=== PATIENT | female | born 1980 | race Two or more races ===

== ENCOUNTER 2022-07-12 16:12 | Emergency (ER) | payer MEDICAID, SELFPAY ==
--- NOTE | ~2022-07-12 | XR_ITS ---
EXAMINATION: XR CHEST CLINICAL INFORMATION: Cough, congestion and shortness of breath COMPARISON: None TECHNIQUE: Frontal view of the chest was obtained. FINDINGS: No significant abnormality is noted involving the heart, lungs, mediastinum, bony thorax or soft tissues. XR/XR chest 1V IMPRESSION: Unremarkable examination.
[2022-07-12 17:17] VITALS: BP 145/68; PULSE 72; RESP 18; TEMP 36.2; O2SAT 98; BMI 42.0
[2022-07-12 17:32] LABS: MANUAL DIFF FLAG NO
[2022-07-12 17:47] LABS: Basophils Absolute Auto 0.1 X10*3/uL (0.0-0.2); Basophils Percent Auto 0.8 % (0-2); Eosinophils Absolute Auto 0.1 X10*3/uL (0.0-0.4); Eosinophils Percent Auto 1.2 % (0-4); Hematocrit 40.8 % (37.0-47.0); Hemoglobin 13.5 g/dl (12.0-16.0); Imm Gran Abs Auto 0.03 X10*3/uL (0.00-0.03); Imm Gran Pct Auto 0.5 % (0.0-0.4); Lymphocytes Percent Auto 32.5 % (20-40); Mean Corpuscular HGB Conc 33.1 g/dl (31.0-35.0); Mean Corpuscular Hemoglobin 28.7 pg (27.0-33.0); Mean Corpuscular Volume 86.8 fL (80.0-98.0); Mean Platelet Volume 10.3 fL (9.4-12.3); Monocytes Absolute Auto 0.7 X10*3/uL (0.1-1.2); Neutrophils Absolute Auto 3.3 x10*3/uL (2.0-8.3); Platelet Count 237 X10*3/uL (160-400); White Blood Count 6.1 X10*3/uL (4.8-10.8)
[2022-07-12 17:52] LABS: Anion Gap 13 (12-20); Blood Urea Nitrogen 6 mg/dL (9-16); Calcium 8.8 mg/dL (8.4-10.2); Carbon Dioxide 27 mmol/L (22-29); Chloride 104 mmol/L (96-108); Estimated Glomerular Filt Rate > 60; Glucose Random 88 mg/dL (60-115); Potassium 4.2 mmol/L (3.3-5.1); Sodium 140 mmol/L (135-145)
--- NOTE | 2022-07-12 17:54 | ED.URI ---
HPI - URI/Sore Throat General Chief Complaint: Upper Respiratory Symptoms Stated Complaint: congested and asthma Time Seen by Provider: 07/12/22 17:54 Source: patient and sign language interpreter Mode of arrival: ambulatory Limitations: language barrier History of Present Illness HPI Narrative: Patient is a 42 year old female presenting to the emergency department today with an asthma exacerbation. Patient states that she has a history of asthma and over the last 2 days, she has felt like she is having a flare. Patient denies any dizziness, lightheadedness, abdominal pain, nausea, vomiting, fever, chills, blurry vision, double vision, loss of vision, chest pain, back pain, night sweats, pain with urination, increased urinary frequency, increased urinary urgency, blood in her urine or stool, syncope or a near syncopal episode, recent trauma or falls, bowel incontinence, bladder incontinence, bowel retention, bladder retention, or any other complaints at this time. Severity: mild Able to tolerate fluids by mouth: Yes Exacerbating factors: nothing Relieving factors: nothing Associated symptoms: denies other symptoms Treatments prior to arrival: none Related Data Previous Rx's Medication Instructions Recorded azithromycin 250 mg tablet See Rx Instructions PO .COMPLEX #6 07/12/22 tabs prednisone 20 mg tablet 20 mg PO DAILY 12 days #26 tabs 07/12/22 Allergies Allergy/AdvReac Type Severity Reaction Status Date / Time No Known Allergies Allergy Verified 07/12/22 17:14 Review of Systems Constitutional: Constitutional: Reports no additional constitutional complaints, Denies chills, Denies fever(s) and Denies night sweats Eyes: Eyes: Reports no additional eye complaints, Denies blurry vision, Denies change in vision, Denies diplopia, Denies eye discharge, Denies loss of vision and Denies eye pain ENT: Denies dizziness Cardiovascular: Cardiovascular: Reports no additional cardiovascular complaints, Denies chest pain, Denies lightheadedness, Denies Loss of Consciousness and Denies dyspnea Respiratory: Respiratory: Reports no additional respiratory complaints, Denies dyspnea and Reports wheezing Gastrointestinal: Gastrointestinal: Reports no additional gastrointestinal complaints, Denies abdominal pain, Denies melena, Denies hematochezia, Denies change in bowel habits and Denies change in stool character Genitourinary: Genitourinary: Denies hematuria, Denies urinary frequency, Denies dysuria, Denies urinary incontinence, Denies urinary hesitancy and Denies urinary urgency Musculoskeletal: Musculoskeletal: Reports no additional musculoskeletal complaints, Denies numbness and Denies tingling Neurologic: Denies dizziness, Denies loss of vision, Denies numbness and Denies tingling Psychiatric: Psychiatric: Reports no additional psychiatric complaints Endocrine: Endocrine: Reports no additional endocrine complaints Hematologic/Lymphatic: Hematologic/Lymphatic: Reports no additional hematologic/lymphatic complaints Allergic/Immunologic: Allergic/Immunologic: Reports no additional allergic/immunologic complaints and Reports wheezing PMFSH Past Medical History Attestation statement: The following information was validated with the patient. Source: old records reviewed Social History Social History Advance Directives: No Advance Directives Information Provided: No Physical Exam Vital Signs: Vital Signs: Last Vital Signs Temp 97.2 F 07/12/22 17:17 Pulse 72 07/12/22 17:17 Resp 18 07/12/22 17:17 BP 145/68 H 07/12/22 17:17 Pulse Ox 98 07/12/22 17:17 O2 Del Method 07/12/22 17:17 BMI result Body Mass Index 42.0 Const: General: cooperative, no acute distress, alert and awake Nutritional Appearance: well nourished Orientation/consciousness: patient oriented x3 Limitations: no limitations HEENT: Head: Yes normal to inspection and Yes atraumatic Ears: hearing grossly normal bilaterally and external ears normal General nose exam: Normal external nose present, no nasal discharge noted and no epistaxis Face and sinus: Yes normal facial exam, No abrasion and No laceration Mouth: Normal oral and palatal mucosa present, no drooling and no muffled voice Eyes: General: appearance normal, both eyes and all related structures Periorbital: periorbital findings normal Eyelids: Yes eyelids normal Conjunctivae: conjunctivae normal Pupils: Equal, round and reactive pupils present EOM: EOMs intact bilaterally Neck: Neck: Yes normal visual inspection, Yes full ROM and Yes no lymphadenopathy Chest: Chest palpation & inspection: normal inspection of the chest Resp: Effort & Inspection: normal respiratory effort and able to speak in complete sentences Auscultation: wheezes Cardio: Rate: regular rate Rhythm: regular rhythm GI: Inspection: Yes normal to inspection Neuro: General: patient oriented x3 and moves all extremities Cranial nerves: Yes Equal, round and reactive pupils present Cognition (Neuro): normal cognition Motor exam (neuro): 5/5 motor strength present throughout Sensory Exam: Normal double simultaneous stimulation for sensation Coordination: [id number] test normal Extrem: General: Yes normal to inspection, Yes full ROM and Yes capillary refill normal Psych: Appearance: grossly normal Mental Status: mental status grossly normal Affect: normal affect Attitude: cooperative Thought process: Normal thought process present Thought content: Normal thought content present Insight: Good insight present (Psych) MDM - URI/Sore Throat MDM Narrative Medical decision making narrative: Patient is a 42 year old female presenting to the emergency department today with a possible asthma exacerbation. Patient's physical exam showed bilateral wheezes but was otherwise unremarkable. Patient's blood work was unremarkable. Patient's chest x-ray showed no acute process. I explained my physical exam findings as well as all test results to the patient. I answered all questions asked by the patient. I stressed the importance of the patient taking her medication as prescribed. I stressed the importance of the patient following up with her primary care provider. I stressed the importance of the patient returning to the emergency department immediately if her symptoms were to worsen or if she were to develop any dizziness, shortness of breath, difficulty breathing, chest pain, blurry vision, loss of vision, nausea, vomiting, abdominal pain, fever, chills, back pain, or any other complaints. Patient verbalized agreement and understanding with this treatment plan and discharge. Medical Records Attestation: I reviewed the patient's medical records. Lab Data Attestation: I reviewed the patient's lab results. Result diagrams: 07/12/22 17:23 07/12/22 17:23 Labs: Lab Results 07/12/22 07/12/22 07/12/22 Range/Units 17:23 17:23 17:23 WBC 6.1 (4.8-10.8) X10*3/uL RBC 4.70 (4.20-5.50) X10*6/uL Hgb 13.5 (12.0-16.0) g/dl Hct 40.8 (37.0-47.0) % MCV 86.8 (80.0-98.0) fL MCH 28.7 (27.0-33.0) pg MCHC 33.1 (31.0-35.0) g/dl RDW 14.0 (11.0-16.0) % Plt Count 237 (160-400) X10*3/uL MPV 10.3 (9.4-12.3) fL Immature Gran % (Auto) 0.5 H (0.0-0.4) % Neut % (Auto) 54.0 (45-73) % Lymph % (Auto) 32.5 (20-40) % Pike % (Auto) 11.0 (2-11) % Eos % (Auto) 1.2 (0-4) % Baso % (Auto) 0.8 (0-2) % Lymph # (Auto) 2.0 (1.2-4.9) X10*3/uL Pike # (Auto) 0.7 (0.1-1.2) X10*3/uL Eos # (Auto) 0.1 (0.0-0.4) X10*3/uL Baso # (Auto) 0.1 (0.0-0.2) X10*3/uL Abs Immat Gran (auto) 0.03 (0.00-0.03) X10*3/uL Absolute Neuts (auto) 3.3 (2.0-8.3) x10*3/uL Absolute Nucleated RBC 0.000 (0.0-0.012) X10*3/uL Nucleated RBC % (auto) 0.0 (0.0-0.2) /100WBC Sodium 140 (135-145) mmol/L Potassium 4.2 (3.3-5.1) mmol/L Chloride 104 (96-108) mmol/L Carbon Dioxide 27 (22-29) mmol/L Anion Gap 13 (12-20) BUN 6 L (9-16) mg/dL Creatinine 0.76 (0.5-1.4) mg/dL Estim Creat Clear Calc 107.0 Estimated GFR > 60 Random Glucose 88 (60-115) mg/dL Calcium 8.8 (8.4-10.2) mg/dL COVID-19 ([facility]NA) Negative (Negative) COVID-19 Clin Com See Note Imaging Data Chest x-ray: Attestation: I personally reviewed and interpreted this imaging study as follows: My impression: No acute process. Radiologist's impression: EXAMINATION: XR CHEST CLINICAL INFORMATION: Cough, congestion and shortness of breath COMPARISON: None TECHNIQUE: Frontal view of the chest was obtained. FINDINGS: No significant abnormality is noted involving the heart, lungs, mediastinum, bony thorax or soft tissues. XR/XR chest 1V IMPRESSION: Unremarkable examination. ? Dictated By: Nic Yousif MD Signed By: Electronically signed by Nic Yousif MD 07/12/22 180 Discharge Plan Discharge Clinical Impression: Asthma exacerbation Patient Disposition: Home, Self-Care Instructions: Asthma (ED) Additional Instructions: Follow up with your primary care provider. Return to the emergency department immediately if your symptoms worsen or if you develop any dizziness, shortness of breath, difficulty breathing, chest pain, blurry vision, loss of vision, nausea, vomiting, abdominal pain, fever, chills, back pain, or any other complaints. Miguel Angel un seguimiento con valdez proveedor de atenci?n primaria. Regrese a la danie de emergencias de inmediato si jazmin s?ntomas empeoran o si presenta mareos, dificultad para respirar, dolor de pecho, visi?n borrosa, p?rdida de la visi?n, n?useas, v?mitos, dolor abdominal, fiebre, escalofr?os, dolor de espalda o cualquier otras quejas. Prescriptions: New prednisone 20 mg tablet 20 mg PO DAILY 12 Days Qty: 26 0RF Rx Instructions: Take 3 tablets for 5 days THEN; Take 2 tablets for 4 days THEN; Take 1 tablet for 3 days azithromycin 250 mg tablet See Rx Instructions .ROUTE .COMPLEX Qty: 6 0RF Rx Instructions: For 250 mg dose pack: take 500 mg today (day 1), then 250 mg for 4 days (days 2-5) Referrals: [facility] [place] Family Medicine [Provider Group] (Call to establish and follow up with a primary care provider. If you already have a primary care provider, please follow up with them. Llame para establecer y hacer un seguimiento con un proveedor de atenci?n primaria. Si ya tiene un proveedor de atenci?n primaria, miguel angel un seguimiento con ?l.) [facility] Primary Care, [place] [Provider Group] (Call to establish and follow up with a primary care provider. If you already have a primary care provider, please follow up with them. Llame para establecer y hacer un seguimiento con un proveedor de atenci?n primaria. Si ya tiene un proveedor de atenci?n primaria, miguel angel un seguimiento con ?l.) [facility] [Provider Group] (Call to establish and follow up with a primary care provider. If you already have a primary care provider, please follow up with them. Llame para establecer y hacer un seguimiento con un proveedor de atenci?n primaria. Si ya tiene un proveedor de atenci?n primaria, miguel angel un seguimiento con ?l.) [facility] [Physician] - (Call to establish and follow up with a primary care provider. If you already have a primary care provider, please follow up with them. Llame para establecer y hacer un seguimiento con un proveedor de atenci?n primaria. Si ya tiene un proveedor de atenci?n primaria, miguel angel un seguimiento con ?l.) Print Language: Puerto Rican
[2022-07-12 18:01] LABS: IDNOW Serial# 16C4AD1C
[2022-07-12 18:02] LABS: COVID-19 Test Negative (Negative)
--- NOTE | 2022-07-12 20:01 | PC.NURSE ---
1830- PT EVALUATED BY PROVIDER. AWARE AND AGREEABLE TO ED CARE PLAN. PT AWAKE, ALERT AND ORIENTED X 3. SKIN WARM AND DRY. RESP UNLABORED. DENIES N/V NO ACUTE DISTRES NOTED DENIES CP/SOB.
== END 2022-07-12 19:05 | disposition home or self-care (01) ==
PROVIDERS: Emergency Provider Emergency Medicine Emergency Medical Services
DX: J45.901 Unspecified asthma with (acute) exacerbation (principal); Z20.822 Contact with and (suspected) exposure to COVID-19
CPT/HCPCS: 71045; 80048; 85025; 87635; 99282; 99283

== ENCOUNTER 2022-08-22 10:49 | Emergency (ER) | payer MEDICAID, SELFPAY ==
[2022-08-22 11:04] VITALS: BP 155/75; PULSE 71; RESP 15; TEMP 36.6; O2SAT 98; BMI 42.0
--- NOTE | 2022-08-22 12:10 | ED_ITS ---
HPI - General Adult General Chief complaint: General Medical Stated complaint: med refill Time Seen by Provider: 08/22/22 11:42 Source: patient and parts interpreter Mode of arrival: ambulatory Limitations: language barrier History of Present Illness HPI narrative: 42-year-old female with history of asthma, hypertension, underlying mental health presents for medication refill. Patient tells me she moved here from [place]. She is working on establishing a primary care doctor but is having some difficulty. She does have all of her medications but is running out of her quetiapine 50 mg. She has 4 tablets left. No complaints Related Data Previous Rx's Medication Instructions Recorded azithromycin 250 mg tablet See Rx Instructions PO .COMPLEX #6 07/12/22 tabs prednisone 20 mg tablet 20 mg PO DAILY 12 days #26 tabs 07/12/22 ibuprofen 800 mg tablet 800 mg PO Q8H PRN pain #30 tabs 08/22/22 quetiapine 50 mg tablet 50 mg PO DAILY #30 tabs 08/22/22 Allergies Allergy/AdvReac Type Severity Reaction Status Date / Time No Known Allergies Allergy Verified 07/12/22 17:14 Review of Systems Review of Systems: Yes all other systems are reviewed and are negative Constitutional: Constitutional: Reports no additional constitutional complaints, Denies body ache(s), Denies chills, Denies fever(s), Denies headache(s) and Denies weakness Eyes: Eyes: Reports no additional eye complaints and Denies change in vision ENT: Reports system reviewed and no additional complaints, except as documented, Denies dizziness, Denies headache(s), Denies nasal congestion, Denies nasal discharge and Denies neck pain Cardiovascular: Cardiovascular: Reports no additional cardiovascular complaints, Denies chest pain, Denies leg edema and Denies dyspnea Respiratory: Respiratory: Reports no additional respiratory complaints, Denies cough and Denies dyspnea Gastrointestinal: Gastrointestinal: Reports no additional gastrointestinal complaints, Denies abdominal pain, Denies diarrhea, Denies nausea and Denies vomiting Genitourinary: Genitourinary: Reports no additional female genitourinary co mplaints and Denies urinary incontinence Musculoskeletal: Musculoskeletal: Reports no additional musculoskeletal complaints, Denies back pain, Denies arthralgias, Denies joint swelling, Denies neck pain, Denies numbness and Denies tingling Integumentary/Breasts: Skin/Breast: Reports system reviewed and no additional complaints, except as docu and Denies rash Neurologic: Reports system reviewed and no additional complaints, except as documented, Denies dizziness, Denies headache(s), Denies numbness, Denies tingling and Denies weakness PMF Past Medical History Attestation statement: The following information was validated with the patient. Source: old records reviewed and nursing notes reviewed Physical Exam ED Vital Signs: Vital Signs - 24 hr 08/22/22 11:04 Temperature 98 F Pulse Rate 71 Respiratory Rate 15 Blood Pressure 155/75 H Pulse Oximetry 98 Oxygen Delivery Method Room Air BMI result Body Mass Index 42.0 Const General: cooperative, healthy appearing, comfortable and no acute distress Orientation/consciousness: patient oriented x3 Limitations: language barrier HENMT Head: Yes normal to inspection Ears: hearing grossly normal bilaterally Eyes General: appearance normal, both eyes and all related structures Neck Neck: Yes normal visual inspection Chest Chest palpation & inspection: normal inspection of the chest Resp Effort & Inspection: normal respiratory effort Cardio Rate: regular rate Rhythm: regular rhythm Peripheral pulses: Peripheral pulses 2+ throughout GI Inspection: Yes normal to inspection Back/Spine/Pelvis Thoracic/Lumbar Spine: thoracic and lumbar spine normal to inspection Skin General skin exam: no rashes or lesions noted Neuro General: patient oriented x3 and moves all extremities Cognition (Neuro): normal cognition Gait exam (Neuro): Normal gait present Extrem General: Yes normal to inspection Medical Decision Making MDM Narrative Medical decision making narrative: 42-year-old female who recently moved here and is working establishing primary care doctor seeking medication refill for her quetiapine 50 mg. No physical complaints She has all of her other medication. Will have Case Management speak to the patient to assist her with subsequent primary care Will provide short supply of quetiapine until patient is able to establish this Medical Records Medical records reviewed: Yes I reviewed the patient's medical records. Discharge Plan Discharge Clinical Impression: Medication refill Patient Disposition: Home, Self-Care Instructions: Medicine Refill (ED) Prescriptions: New quetiapine 50 mg tablet 50 mg PO DAILY Qty: 30 0RF ibuprofen 800 mg tablet 800 mg PO Q8H PRN (Reason: pain) Qty: 30 0RF No Action prednisone 20 mg tablet 20 mg PO DAILY 12 Days Qty: 26 0RF Rx Instructions: Take 3 tablets for 5 days THEN; Take 2 tablets for 4 days THEN; Take 1 tablet for 3 days azithromycin 250 mg tablet See Rx Instructions .ROUTE .COMPLEX Qty: 6 0RF Rx Instructions: For 250 mg dose pack: take 500 mg today (day 1), then 250 mg for 4 days (days 2-5) Referrals: Marimar Figueroa FNP [Nurse Practitioner] - 09/01/22 11:00 am Interventions: ED Discharge Assessment Last Done: 08/22/22 13:40 Discharge Date/Time: 08/22/22 13:41 Print Language: Romanian
--- NOTE | 2022-08-22 13:30 | MHC.CM.ED ---
Received case management consult from Regina STOKES. Patient came to the ER to have her monthly Seroquel refilled. Patient relocated from [place] to [place] and from [place] to [place]. Patient has not been able to establish care with a PCP locally. Kendall tried to go to the [facility]. But they are not able to accept new patients at this time. They recommended patient contact their [place] office. Patient has transportation issues and will not be able to make appointments in [place]. T/W spoke with Amanda at [facility]. New patient appointment was made for 09/01 at 11am. Patient will need to arrive at 10:45am with her ID, ins card and a mask. Patient also requested t/w find a PCP for her son, Jan Suazo, : 05/03/2006. Per [facility], they don't accept patients under the age of 18. T/W attempted to reach the pediatric office at [facility]. They are currently at lunch. Will continue to try to contact their office. Continue to monitor for d/c needs.
--- NOTE | 2022-09-05 12:46 | MHC.CM.ED ---
Received telephone call from patient. Spoke with patient with help of telephone messenger. Patient had a PCP appointment arranged by T/W on 09/01. Patient went to appointment. Patient is requesting T/W find director of valuation for patient's 16 year old son. T/W explained patient will have to call pediatric offices in the area to arrange this appointment. Patient verbalized understanding.
== END 2022-08-22 13:41 | disposition home or self-care (01) ==
PROVIDERS: Emergency Provider Emergency Medicine
DX: Z76.0 Encounter for issue of repeat prescription (principal)
CPT/HCPCS: 99282; 99283

== ENCOUNTER 2022-09-11 08:54 | Outpatient (REF) | payer MEDICAID, SELFPAY ==
[2022-09-11 09:14] LABS: MANUAL DIFF FLAG NO
[2022-09-11 09:42] LABS: Basophils Absolute Auto 0.1 X10*3/uL (0.0-0.2); Basophils Percent Auto 0.6 % (0-2); Eosinophils Absolute Auto 0.1 X10*3/uL (0.0-0.4); Eosinophils Percent Auto 1.2 % (0-4); Hematocrit 41.7 % (37.0-47.0); Hemoglobin 13.9 g/dl (12.0-16.0); Imm Gran Abs Auto 0.02 X10*3/uL (0.00-0.03); Imm Gran Pct Auto 0.2 % (0.0-0.4); Lymphocytes Absolute Auto 2.3 X10*3/uL (1.2-4.9); Lymphocytes Percent Auto 27.4 % (20-40); Mean Corpuscular HGB Conc 33.3 g/dl (31.0-35.0); Mean Corpuscular Hemoglobin 29.4 pg (27.0-33.0); Mean Corpuscular Volume 88.3 fL (80.0-98.0); Mean Platelet Volume 10.5 fL (9.4-12.3); Monocytes Absolute Auto 0.7 X10*3/uL (0.1-1.2); Monocytes Percent Auto 8.2 % (2-11); Neutrophils Absolute Auto 5.3 x10*3/uL (2.0-8.3); Neutrophils Percent Auto 62.4 % (45-73); Platelet Count 307 X10*3/uL (160-400); Red Blood Count 4.72 X10*6/uL (4.20-5.50); Red Cell Distribution Width 13.9 % (11.0-16.0); White Blood Count 8.5 X10*3/uL (4.8-10.8)
[2022-09-11 09:54] LABS: Estimated Average Glucose 108 mg/dL; Hemoglobin A1c % 5.4 %
[2022-09-11 10:34] LABS: Alanine Aminotransferase 19 U/L (0-31); Albumin Level 4.1 g/dL (3.5-5.0); Alkaline Phosphatase 55 U/L (39-117); Anion Gap 11 (12-20); Aspartate Amino Transferase 22 U/L (5-31); Bilirubin Total 0.5 mg/dL (0.0-1.0); Blood Urea Nitrogen 9 mg/dL (9-16); Carbon Dioxide 27 mmol/L (22-29); Chloride 103 mmol/L (96-108); Cholesterol 165 mg/dL; Estimated Glomerular Filt Rate > 60; Glucose Random 86 mg/dL (60-115); HDL Cholesterol 38 mg/dL; LDL Cholesterol Calculated 105 mg/dl; Potassium 4.2 mmol/L (3.3-5.1); Sodium 137 mmol/L (135-145); TSH reflex Free T4 2.25 uIU/mL (0.32-4.0); Total Protein 7.4 g/dL (6.5-8.0); Triglycerides 112 mg/dL; Vitamin D 25-OH Total 26.5 ng/mL (>30)
[2022-09-11 10:39] LABS: Vitamin B12 448 pg/mL (200-900)
== END 2022-09-11 08:55 | disposition home or self-care (01) ==
LOC: HO.LAB 08:54
PROVIDERS: Visit Provider Nurse Practitioner Family
DX: Z13.0 Encounter for screening for diseases of the blood and blood-forming organs and certain disorders involving the immune mechanism (principal); Z13.29 Encounter for screening for other suspected endocrine disorder; Z13.21 Encounter for screening for nutritional disorder; Z13.220 Encounter for screening for lipoid disorders; I10 Essential (primary) hypertension
CPT/HCPCS: 36415; 80053; 80061; 82306; 82607; 83036; 84443; 85025

== ENCOUNTER 2022-09-27 08:57 | Outpatient (REF) | payer MEDICAID, SELFPAY ==
--- NOTE | ~2022-09-27 | MM_ITS ---
EXAMINATION: MM SCREENING DIGITAL BREAST TOMOSYNTHESIS, BILATERAL CLINICAL INFORMATION: Screening. Asymptomatic. Prior clg-ri-[id number] mammography currently unavailable. No known family history breast cancer. The lifetime risk of breast cancer based on the Tyrer-Cuzick Model is 5%. COMPARISON: None. TECHNIQUE: Digital breast tomosynthesis is performed in both the craniocaudal and mediolateral oblique views along with computer-aided detection (CAD). Synthesized 2D images are generated from the tomosynthesis. Additional left CC view is provided. FINDINGS: There are scattered areas of fibroglandular density (ACR BI-RADS breast composition Category b). There are no significant masses, abnormal calcifications, or other abnormalities. The axilla and skin contours are unremarkable. Radiology department staff will attempt to retrieve srh-iz-cdtbt mammography to allow for comparison in an addendum report. MM/MM tomosynthesis screening BI IMPRESSION: No mammographic evidence of malignancy. ASSESSMENT: BI-RADS 1: Negative RECOMMENDATION: Routine annual mammography screening. This patient's information was entered into a reminder system with a target due date for their next mammogram.
== END 2022-09-27 08:58 | disposition home or self-care (01) ==
LOC: HO.MAMMO 08:57
PROVIDERS: PCP Nurse Practitioner Family; Visit Provider Nurse Practitioner Family
DX: Z12.31 Encounter for screening mammogram for malignant neoplasm of breast (principal)
CPT/HCPCS: 77063; 77067

== ENCOUNTER 2022-09-27 15:02 | Emergency (ER) | payer MEDICAID, SELFPAY ==
[2022-09-27 16:43] VITALS: BP 171/96; PULSE 78; RESP 18; TEMP 36.6; O2SAT 99; BMI 40.2
--- NOTE | 2022-09-27 16:50 | ED_ITS ---
HPI - General Adult General Chief complaint: General Medical Stated complaint: Med Refill History of Present Illness HPI narrative: Patient is a 42-year-old female has a baseline bipolar history of hypertension patient presented today after running out of her medication. Patient is on S eroquel 50 mg 1 tablet per day. No fever no chills no chest pain or shortness of breath no systemic complaints Related Data Home Medications Medication Instructions Recorded Confirmed albuterol sulfate 90 mcg/actuation 2 puff inhalation Q4-6H PRN 09/01/22 09/01/22 aerosol inhaler (ProAir HFA) cetirizine 10 mg tablet 10 mg PO DAILY 09/01/22 09/01/22 ibuprofen 600 mg tablet 600 mg PO Q6H PRN 09/01/22 09/01/22 montelukast 10 mg tablet 10 mg PO DAILY 09/01/22 09/01/22 Previous Rx's Medication Instructions Recorded ibuprofen 800 mg tablet 800 mg PO Q8H PRN pain #30 tabs 08/22/22 quetiapine 50 mg tablet 50 mg PO DAILY #30 tabs 08/22/22 escitalopram oxalate 10 mg tablet 10 mg PO DAILY #30 tabs 09/01/22 lisinopril 10 mg tablet 10 mg PO DAILY #90 tabs 09/01/22 cholecalciferol (vitamin D3) 50 50 mcg PO DAILY #30 caps 09/12/22 mcg (2,000 unit) capsule quetiapine 25 mg tablet (Seroquel) 25 mg PO DAILY #14 tabs 09/27/22 quetiapine 50 mg tablet (Seroquel) 50 mg PO DAILY #14 tabs 09/27/22 quetiapine 50 mg tablet (Seroquel) 50 mg PO DAILY #14 tabs 09/27/22 Allergies Allergy/AdvReac Type Severity Reaction Status Date / Time Nuts Allergy Severe Anaphylaxis Uncoded 09/01/22 12:31 Review of Systems Review of Systems: No fever no chills no cough no congestion or upper respiratory symptoms Yes all other systems are reviewed and are negative [facility] Past Medical History Attestation statement: The following information was validated with the patient. Medical History Deafness in right ear Hearing difficulty of left ear Meningitis Obesity Surgical History H/O hysterectomy with unilateral oophorectomy Family History Family History Mother Cervical cancer, Onset Age: 40 Social History Social History Housing: Assisted Living Facility (custodial ) Patient Tobacco Use Status: Never used Tobacco e-Cigarette/Vaping Use: Never Used service: No Current occupational status: unemployed Cognitive needs: No Hearing needs: No Vision needs: No Physical Exam ED Vital Signs: Vital Signs - 24 hr 09/27/22 16:43 Temperature 97.9 F Pulse Rate 78 Respiratory Rate 18 Blood Pressure 171/96 H Pulse Oximetry 99 Oxygen Delivery Method Room Air BMI result Body Mass Index 40.2 Appearance: Alert. Oriented X3. No acute distress. Eyes: Pupils equal, round and reactive to light. ENT: Pharynx normal. Neck: Normal inspection. Neck supple. No lymph nodes noted. No crepitus CVS: Normal heart rate and rhythm. Pulses normal. Normal S1 and S2 Respiratory: No respiratory distress. Breath sounds normal. No Wheezing. No rales Abdomen: Soft and nontender. No rigidity. No distention. good BS x4 Skin: Skin warm and dry. Normal skin color. Normal skin turgor. Extremities: No lower extremity edema. Neurovascular intact to all extremities. No Lacerations. No Rash Neuro: Oriented X 3. No motor deficit. No sensory deficit. Moving all extermities. No slurred speech Medical Decision Making Medical Decision Making MDM Narrative: Patient out of medications. He was in the emergency department about a month ago for similar episode. The patient was given 1 month supply of Seroquel. This time patient is out of medications again. Informed patient that she needs to follow-up with her primary physician for Seroquel. Will give patient a 2 week supply of Seroquel. Have patient follow-up on an outpatient basis Discharge Plan Discharge Clinical Impression: Bipolar 1 disorder Patient Disposition: Home, Self-Care Instructions: Bipolar Disorder (ED) Prescriptions: New quetiapine [Seroquel] 25 mg tablet 25 mg PO DAILY Qty: 14 0RF quetiapine [Seroquel] 50 mg tablet 50 mg PO DAILY Qty: 14 0RF quetiapine [Seroquel] 50 mg tablet 50 mg PO DAILY Qty: 14 0RF No Action cholecalciferol (vitamin D3) 50 mcg (2,000 unit) capsule 50 mcg PO DAILY Qty: 30 3RF quetiapine 50 mg tablet 50 mg PO DAILY Qty: 30 0RF ibuprofen 800 mg tablet 800 mg PO Q8H PRN (Reason: pain) Qty: 30 0RF cetirizine 10 mg tablet 10 mg PO DAILY montelukast 10 mg tablet 10 mg PO DAILY ibuprofen 600 mg tablet 600 mg PO Q6H PRN albuterol sulfate [ProAir HFA] 90 mcg/actuation HFA aerosol inhaler 2 puff inhalation Q4-6H PRN escitalopram oxalate 10 mg tablet 10 mg PO DAILY Qty: 30 3RF lisinopril 10 mg tablet 10 mg PO DAILY Qty: 90 3RF
== END 2022-09-27 17:08 | disposition home or self-care (01) ==
LOC: HO.ED 17:08
PROVIDERS: Emergency Provider Emergency Medicine Emergency Medical Services; PCP Nurse Practitioner Family
DX: F31.9 Bipolar disorder, unspecified (principal); Z76.0 Encounter for issue of repeat prescription; Z79.899 Other long term (current) drug therapy
CPT/HCPCS: 99282; 99283

== ENCOUNTER 2022-12-29 14:32 | Outpatient (REF) | payer OTHER, SELFPAY ==
--- NOTE | ~2022-12-29 | MR_ITS ---
EXAMINATION: MR LUMBAR SPINE WITHOUT CONTRAST CLINICAL INFORMATION: Low back pain. COMPARISON: None available. TECHNIQUE: MRI of the lumbar spine was obtained using routine sequences without contrast. FINDINGS: Normal anatomic alignment. Moderate degenerative disc disease at T10-T11, T11-T12, and L1-L2. Mild degenerative disc disease at all additional lumbar levels. Associated mild mixed Modic type discogenic endplate changes including minimal Modic type I discogenic edema at T11-T12 and T12-L1. No additional suspicious marrow edema. The vertebral body heights are largely maintained. The conus medullaris terminates at the level of L1. The distal spinal cord is normal in appearance. Nonspecific moderate atrophy of the right iliopsoas musculature. No additional significant abnormalities of the paraspinal musculature. Limited evaluation of the intra-abdominal structures without significant abnormalities. The abdominal aorta is of normal contour and caliber. AXIAL SPINAL LEVELS: T12-L1: Normal annular contour. There is mild left and no right facet joint arthropathy. There is no neural foraminal stenosis. There is no spinal canal stenosis. L1-L2: Mild diffuse disc bulge with superimposed shallow central disc protrusion. There is mild bilateral facet joint arthropathy. There is no neural foraminal stenosis. There is no spinal canal stenosis. L2-L3: Normal annular contour. There is mild bilateral facet joint arthropathy. There is no neural foraminal stenosis. There is no spinal canal stenosis. L3-L4: Normal annular contour. There is mild bilateral facet joint arthropathy. There is no neural foraminal stenosis. There is no spinal canal stenosis. L4-L5: Shallow diffuse disc bulge with superimposed small left foraminal disc protrusion. There is mild bilateral facet joint arthropathy. There is mild left and no right neural foraminal stenosis. There is no spinal canal stenosis. L5-S1: Normal annular contour. There is mild bilateral facet joint arthropathy. There is no neural foraminal stenosis. There is no spinal canal stenosis. MR/MR lumbar spine wo con IMPRESSION: 1. Mild multilevel degenerative spondyloarthropathy of the lumbar spine as described in detail above. No overt spinal canal stenosis or nerve root compression. 2. Nonspecific moderate atrophy of the right iliopsoas musculature.
== END 2022-12-29 14:33 | disposition home or self-care (01) ==
LOC: HO.MRI 14:32
PROVIDERS: PCP Nurse Practitioner Family; Visit Provider Nurse Practitioner Family
DX: M54.50 Low back pain, unspecified (principal)
CPT/HCPCS: 72148

== ENCOUNTER → 2023-02-21 11:00 | Outpatient (BNVA) | payer OTHER, SELFPAY | PROVIDERS: PCP Nurse Practitioner Family; Visit Provider Anesthesiology | DX: M47.816 Spondylosis without myelopathy or radiculopathy, lumbar region (principal); M54.50 Low back pain, unspecified; M46.1 Sacroiliitis, not elsewhere classified; M53.3 Sacrococcygeal disorders, not elsewhere classified; G89.29 Other chronic pain | CPT/HCPCS: 99202 ==

== ENCOUNTER 2023-02-25 12:43 | Emergency (ER) | payer OTHER, SELFPAY ==
[2023-02-25 12:50] VITALS: BP 126/74; PULSE 80; RESP 19; TEMP 36.6; O2SAT 99; BMI 46.6
--- NOTE | 2023-02-25 12:54 | ED.SKABFB ---
HPI - Skin/Abscess/Foreign Bdy General Chief complaint: Wound/Laceration Stated complaint: cut L foot Time Seen by Provider: 02/25/23 13:04 Source: patient, RN notes reviewed and old records reviewed Mode of arrival: ambulatory History of Present Illness HPI narrative: 42-year-old female with a past medical history of asthma, hypertension, bipolar, vitamin-D deficiency, presenting to the ED complaining of persistent bleeding from varicose vein to left foot S/P knicking vein while shaving at 11:00AM. Admits tried direct pressure at home without resolution. Denies taking anticoagulation. Reports associated jittery/achiness. Denies lightheadedness/dizziness, CP/SOB, injury/fall MD complaint: lesion Onset (ago): hour(s) Related Data Home Medications Medication Instructions Recorded Confirmed albuterol sulfate 90 mcg/actuation 2 puff inhalation Q4-6H PRN 09/01/22 11/27/22 aerosol inhaler (ProAir HFA) cetirizine 10 mg tablet 10 mg PO DAILY 09/01/22 11/27/22 montelukast 10 mg tablet 10 mg PO DAILY 09/01/22 11/27/22 Previous Rx's Medication Instructions Recorded ibuprofen 800 mg tablet 800 mg PO Q8H PRN pain #30 tabs 08/22/22 lisinopril 10 mg tablet 10 mg PO DAILY #90 tabs 09/01/22 cholecalciferol (vitamin D3) 50 50 mcg PO DAILY #30 caps 09/12/22 mcg (2,000 unit) capsule escitalopram oxalate 10 mg tablet 10 mg PO DAILY #30 tabs 11/27/22 miconazole nitrate 4 % (200 mg)-2 See Rx Instructions vaginal 11/27/22 % (9 gram)vaginal,prefill .COMPLEX #24 grams appl,cream quetiapine 50 mg tablet 50 mg PO DAILY #30 tabs 11/27/22 Allergies Allergy/AdvReac Type Severity Reaction Status Date / Time Nuts Allergy Severe Anaphylaxis Uncoded 02/25/23 12:56 Review of Systems Review of Systems: Constitutional: No Fever, No Chills, +jittery ENT/Mouth: No Ear Pain, No Nasal Congestion, No Swallowing Difficulty Cardiovascular: No Chest Pain, No SOB Respiratory: No Cough, No Sputum, No Wheezing Gastrointestinal: No Nausea, No Vomiting, No Diarrhea, No Abdominal pain Musculoskeletal: No joint pain, No Myalgias, No Joint Swelling Skin: +Skin Lesions, No rash Neuro: No Weakness, No Numbness, No Paresthesias Yes all other systems are reviewed and are negative Constitutional: Constitutional: Reports as per [facility] Past Medical History Attestation statement: The following information was validated with the patient. Source: old records reviewed Medical History Deafness in right ear Hearing difficulty of left ear Lumbar back pain Meningitis Obesity Spondyloarthropathy of lumbar spine Surgical History H/O hysterectomy with unilateral oophorectomy Family History Family History Mother Cervical cancer, Onset Age: 40 Social History Social History Housing: Assisted Living Facility Patient Tobacco Use Status: Never used Tobacco e-Cigarette/Vaping Use: Never Used Advance Directives: No Advance Directives Information Provided: Yes service: No Current occupational status: unemployed Cognitive needs: No Hearing needs: No Vision needs: No Physical Exam Vital Signs: Vital Signs: Last Vital Signs Temp 98 F 02/25/23 12:50 Pulse 80 02/25/23 12:50 Resp 19 02/25/23 12:50 BP 126/74 02/25/23 12:50 Pulse Ox 99 02/25/23 12:50 O2 Del Method Room Air 02/25/23 12:50 BMI result Body Mass Index 46.6 Const: General: cooperative, healthy appearing and no acute distress Orientation/consciousness: patient oriented x3 Limitations: no limitations HEENT: Head: Yes normal to inspection and Yes atraumatic Ears: hearing grossly normal bilaterally General nose exam: Normal external nose present Face and sinus: Yes normal facial exam Eyes: General: appearance normal, both eyes and all related structures EOM: EOMs intact bilaterally Neck: Neck: Yes normal visual inspection and Yes no meningeal signs Resp: Effort & Inspection: normal respiratory effort and no respiratory distress Cardio: Rate: regular rate Heart sounds: S1 normal heart sound present and S2 normal heart sound present Peripheral pulses: Peripheral pulses 2+ throughout Skin: Other: + small actively bleeding lesion to left medial foot. NV intact. Nontender, no deformity/ecchymosis or cellulitis Rashes: no rashes Neuro: General: patient oriented x3, tone normal and no meningeal signs Gait exam (Neuro): Normal gait present Extrem: General: Yes normal to inspection Course Course Course Narrative: -1357--labs reassuring -1400--on re-evaluation initially bleeding controlled, however started to rebleed. Surgicel/compression dressing reapplied. Will reassess -1442--on re-evaluation bleeding has subsided. 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 They verbalized understanding and feel safe for discharge at this time. Medical Decision Making Medical Decision Making [facility] Narrative: 42-year-old female with a past medical history of asthma, hypertension, bipolar, vitamin-D deficiency, presenting to the ED complaining of persistent bleeding from varicose vein to left foot S/P knicking vein while shaving at 11:00AM. On exam vital signs stable, NAD, nontoxic appearing, ambulating with steady gait. Small bleeding lesion noted to left medial foot, active bleeding appreciated. Surgicel applied with compression Ricco wrap. Lower suspicion for anemia. No evidence of infection/cellulitis Plan: Basic labs, re-evaluation hemostasis Please refer to course for remaining clinical decision making, interpretation of labs/imaging results, and discussions with consultants and/or family members. Differential Diagnosis Differential Diagnoses: The differential diagnosis associated with the presentation includes As above Lab Data [facility] Lab Attestation statement: I reviewed the patient's lab results. 02/25/23 13:07 Labs: Lab Results 02/25/23 02/25/23 Range/Units 13:07 13:07 WBC 8.9 (4.8-10.8) X10*3/uL RBC 4.37 (4.20-5.50) X10*6/uL Hgb 12.8 (12.0-16.0) g/dl Hct 38.6 (37.0-47.0) % MCV 88.3 (80.0-98.0) fL MCH 29.3 (27.0-33.0) pg MCHC 33.2 (31.0-35.0) g/dl RDW 13.6 (11.0-16.0) % Plt Count 297 (160-400) X10*3/uL MPV 9.9 (9.4-12.3) fL Immature Gran % (Auto) 0.6 H (0.0-0.4) % Neut % (Auto) 63.3 (45-73) % Lymph % (Auto) 28.2 (20-40) % Hughes % (Auto) 6.6 (2-11) % Eos % (Auto) 0.9 (0-4) % Baso % (Auto) 0.4 (0-2) % Lymph # (Auto) 2.5 (1.2-4.9) X10*3/uL Hughes # (Auto) 0.6 (0.1-1.2) X10*3/uL Eos # (Auto) 0.1 (0.0-0.4) X10*3/uL Baso # (Auto) 0.0 (0.0-0.2) X10*3/uL Abs Immat Gran (auto) 0.05 H (0.00-0.03) X10*3/uL Absolute Neuts (auto) 5.6 (2.0-8.3) x10*3/uL Absolute Nucleated RBC 0.000 (0.0-0.012) X10*3/uL Nucleated RBC % (auto) 0.0 (0.0-0.2) /100WBC PT 11.8 (10.0-13.1) SEC INR 1.0 (0.9-1.1) Radiology Impression Discussion of test interpretation with radiology: I have reviewed the radiologist's reading. External Record Review External record reviewed: Inpatient record, Office record, Outpatient record, Prior outpatient labs, Prior outpatient radiology, Primary care record and Outside ED record Tests considered The following testing was considered but not selected: As above Discharge Plan Discharge Clinical Impression: Bleeding Patient Disposition: Home, Self-Care Instructions: Bleeding Disorders (ED) Additional Instructions: Keep dressing intact, recheck tomorrow morning. To remove underlying dressing please soak with water. If bleeding recurs apply direct pressure and then tight Ricco wrap for compression, elevate your leg If you cannot control bleeding please return to the ED Follow-up with her doctor Mantenga el vendaje intacto, vuelva a revisar ma?viry por la ma?viry. Para quitar el ap?sito subyacente, emp?pelo con agua. Si el sangrado reaparece, aplique presi?n directa y luego apriete la venda Ricco para comprimir, eleve la pierna. Si no puede controlar el sangrado, regrese al servicio de urgencias. Seguimiento con valdez m?dico Prescriptions: No Action cholecalciferol (vitamin D3) 50 mcg (2,000 unit) capsule 50 mcg PO DAILY Qty: 30 3RF ibuprofen 800 mg tablet 800 mg PO Q8H PRN (Reason: pain) Qty: 30 0RF cetirizine 10 mg tablet 10 mg PO DAILY montelukast 10 mg tablet 10 mg PO DAILY albuterol sulfate [ProAir HFA] 90 mcg/actuation HFA aerosol inhaler 2 puff inhalation Q4-6H PRN lisinopril 10 mg tablet 10 mg PO DAILY Qty: 90 3RF miconazole nitrate 4 % (200 mg)- 2 % (9 gram) comb pack,prefill appl, cream See Rx Instructions vaginal .COMPLEX Qty: 24 0RF Rx Instructions: put 1 supp in vagina at bedtime x 3nites;use cream on area outside vagina 2X/day for up to 7days vaginal escitalopram oxalate 10 mg tablet 10 mg PO DAILY Qty: 30 3RF quetiapine 50 mg tablet 50 mg PO DAILY Qty: 30 3RF Referrals: Daimon Randall MD [Primary Care Provider] - 3 days Interventions: ED Discharge Assessment Last Done: 02/25/23 15:10 Discharge Date/Time: 02/25/23 15:12 Print Language: Mohawk
[2023-02-25 13:11] LABS: MANUAL DIFF FLAG NO
[2023-02-25 13:13] LABS: Basophils Percent Auto 0.4 % (0-2); Eosinophils Absolute Auto 0.1 X10*3/uL (0.0-0.4); Eosinophils Percent Auto 0.9 % (0-4); Hematocrit 38.6 % (37.0-47.0); Hemoglobin 12.8 g/dl (12.0-16.0); Imm Gran Abs Auto 0.05 X10*3/uL (0.00-0.03); Imm Gran Pct Auto 0.6 % (0.0-0.4); Lymphocytes Absolute Auto 2.5 X10*3/uL (1.2-4.9); Lymphocytes Percent Auto 28.2 % (20-40); Mean Corpuscular HGB Conc 33.2 g/dl (31.0-35.0); Mean Corpuscular Hemoglobin 29.3 pg (27.0-33.0); Mean Corpuscular Volume 88.3 fL (80.0-98.0); Mean Platelet Volume 9.9 fL (9.4-12.3); Monocytes Absolute Auto 0.6 X10*3/uL (0.1-1.2); Monocytes Percent Auto 6.6 % (2-11); Neutrophils Absolute Auto 5.6 x10*3/uL (2.0-8.3); Neutrophils Percent Auto 63.3 % (45-73); Platelet Count 297 X10*3/uL (160-400); Red Blood Count 4.37 X10*6/uL (4.20-5.50); Red Cell Distribution Width 13.6 % (11.0-16.0); White Blood Count 8.9 X10*3/uL (4.8-10.8)
[2023-02-25 13:19] LABS: Prothrombin Time 11.8 SEC (10.0-13.1)
== END 2023-02-25 15:12 | disposition home or self-care (01) ==
PROVIDERS: Physician Assistant; Emergency Provider Emergency Medicine; PCP Internal Medicine
DX: S91.312A Laceration without foreign body, left foot, initial encounter (principal); X58.XXXA Exposure to other specified factors, initial encounter; Y93.9 Activity, unspecified; Y92.9 Unspecified place or not applicable; Y99.9 Unspecified external cause status; Z79.899 Other long term (current) drug therapy
CPT/HCPCS: 36415; 85025; 85610; 99283

== ENCOUNTER → 2023-03-21 10:54 | Outpatient (BNVA) | payer OTHER, SELFPAY | PROVIDERS: PCP Internal Medicine; Visit Provider Physician Assistant ==

== ENCOUNTER 2023-03-23 13:15 | Outpatient (REF) | payer OTHER, SELFPAY | END 2023-03-23 13:16 | disposition home or self-care (01) | LOC: HO.LNP 13:15 | PROVIDERS: PCP Internal Medicine; Visit Provider Advanced Practice Midwife | DX: Z13.89 Encounter for screening for other disorder (principal) ==

== ENCOUNTER 2023-03-23 14:36 | Outpatient (REF) | payer OTHER, SELFPAY ==
[2023-03-24 10:29] LABS: BV Int Neg Control Negative (Negative); BV Int Pos Control Positive (Positive)
[2023-03-25 07:33] LABS: Follicle Stimulating Hormone 7.3 mIU/mL
== END 2023-03-23 14:37 | disposition home or self-care (01) ==
LOC: HO.LAB 14:36
PROVIDERS: PCP Nurse Practitioner Family; Visit Provider Advanced Practice Midwife
DX: N89.8 Other specified noninflammatory disorders of vagina (principal)
CPT/HCPCS: 36415; 83001; 87480; 87510; 87660

== ENCOUNTER → 2023-04-25 10:01 | Outpatient (BNVA) | payer OTHER, SELFPAY | PROVIDERS: PCP Internal Medicine; Visit Provider Physician Assistant Surgical | DX: E66.01 Morbid (severe) obesity due to excess calories (principal); Z68.41 Body mass index [BMI] 40.0-44.9, adult; Z59.01 Sheltered homelessness | CPT/HCPCS: 99202 ==

== ENCOUNTER 2023-05-01 07:10 | Outpatient (REF) | payer OTHER, SELFPAY ==
--- NOTE | ~2023-05-01 | FL_ITS ---
EXAMINATION: XR FLUOROSCOPY WITH IMAGES CLINICAL INFORMATION: Sacroiliitis COMPARISON: None available. TECHNIQUE: Fluoroscopy Supervised By: Dr. Leonard Coffman. Fluoroscopy Time: 0.1 minutes. Cumulative Dose: 2.94 mGy. DAP: 0.0512 Gycm2. Images: 1. FINDINGS: There is a needle and some contrast superimposed over the region of the SI joint FL/FL guidance in treatment room IMPRESSION: Imaging assistance provided during a fluoroscopic procedure
== END 2023-05-01 07:11 | disposition home or self-care (01) ==
LOC: CF 07:10
PROVIDERS: PCP Nurse Practitioner Family; Visit Provider Anesthesiology
DX: M46.1 Sacroiliitis, not elsewhere classified (principal); M47.816 Spondylosis without myelopathy or radiculopathy, lumbar region; M54.50 Low back pain, unspecified; M53.3 Sacrococcygeal disorders, not elsewhere classified; G89.4 Chronic pain syndrome
CPT/HCPCS: 27096; J2795

== ENCOUNTER 2023-05-01 11:42 | Outpatient (AMB) | payer OTHER, SELFPAY ==
--- NOTE | 2023-05-01 12:07 | A.OFFVIS_ITS ---
Intake Vital Signs 05/01/23 12:15 05/01/23 12:16 Height 5 ft 2 in 5 ft 2 in Weight 223 lb 223 lb BMI 40.8 40.8 BP 132/58 L 126/82 Blood Pressure Location Rt brachial Lt brachial Position Sitting Sitting Respiration 16 16 Pulse 70 85 Pulse Source Pulse Oximeter Pulse Oximeter Pulse Oximetry (%) 99 98 Oxygen Delivery Method Room Air Room Air Comment Pre-op Post-op Intake Visit Reasons: RIGHT DIAGNOSTIC SIJ INJECTION Allergies Nuts Allergy (Severe, Uncoded 03/23/23 13:34) [facility]axis [facility] Medical History Deafness in right ear Hearing difficulty of left ear Lumbar back pain Meningitis Obesity Spondyloarthropathy of lumbar spine Stress incontinence Surgical History H/O hysterectomy with unilateral oophorectomy Family History Mother Cervical cancer, Onset Age: 40 Social History Housing: Assisted Living Facility Patient Tobacco Use Status: Never used Tobacco e-Cigarette/Vaping Use: Never Used service: No Current occupational status: unemployed Cognitive needs: No Hearing needs: No Vision needs: No Physical Exam Vital Signs: Last Vital Signs Pulse 85 05/01/23 12:16 Resp 16 05/01/23 12:16 BP 126/82 05/01/23 12:16 Pulse Ox 98 05/01/23 12:16 Oxygen Delivery Method Room Air 05/01/23 12:16 BMI result Body Mass Index 40.8 Assessment & Plan Assessment & Plan (1) Spondyloarthropathy of lumbar spine: Code(s): M47.816 - Spondylosis without myelopathy or radiculopathy, lumbar region (2) Lumbar back pain: Code(s): M54.50 - Low back pain, unspecified (3) Spondylosis of lumbar region without myelopathy or radiculopathy: Code(s): M47.816 - Spondylosis without myelopathy or radiculopathy, lumbar region (4) Sacroiliitis: Code(s): M46.1 - Sacroiliitis, not elsewhere classified Plan: Right diagnostic sacroiliac joint injection Informed consent was explained thoroughly to the patient. All questions about benefits and risks for the procedure were answered. Patient came to the operating room and was positioned prone on the operating table with the pillow under the pelvis. Time out was performed delineating name and of the patient, allergies and the nature of the procedure. The lower back and buttocks of the patient were prepped with ChloraPrep prepped and draped with sterile utility towels. C-arm was brought over the operating field and sq picture of patient's pelvis was demonstrated on the screen. For the right joint tilting C-arm contralateral to the site of the joint the most posterior portion of the joints was superimposed with anterior silhouette of the joint. Skin was injected in the projection of the joint slightly medial to the location of the joint with 25 gauge 1/2 inch needle using local lidocaine 2% .After that 22 gauge 3 and 1/2 inch needle was driven to the right joint in tunnel vision fashion. When needle entered the joint capsule injection of the contrast was performed demonstrating intra-articular and minimally periarticular spread of the contrast. After that 4 cc. of ropivacaine 0.5% was injected into the joint. Upon completion of the injections the needle was removed Sterile dressing was applied. Upon completion of the injection patient was taken outside of the operating room to the recovery room where recovered uneventfully. (5) Chronic right sacroiliac joint pain: Code(s): M53.3 - Sacrococcygeal disorders, not elsewhere classified; G89.29 - Other chronic pain (6) Chronic pain syndrome: Code(s): G89.4 - Chronic pain syndrome Plan 1. I will schedule this patient for physical therapy. 2. I will schedule this patient for diagnostic right sacroiliac joint injection. 3. Depending on how much pain will be relieved after diagnostic sacroiliac joint injection I might make a decision to perform bilateral medial branch block L3-L4 dorsal ramus L5. 4. She can continue Naprosyn. 5. She requests me to refer her to bariatric surgery program she wants to lose weight. 6. I will see this patient after sacroiliac joint injection and we will evaluate her and evaluate effectiveness of physical therapy. Orders: Orders FL guidance in treatment room Today M46.1 - Sacroiliitis, not elsewhere classified Coding Level of Care Code Procedure Only Diagnoses Spondyloarthropathy of lumbar spine M47.816 Lumbar back pain M54.50 Spondylosis of lumbar region without myelopathy or radiculopathy M47.816 Sacroiliitis M46.1 Chronic right sacroiliac joint pain M53.3; G89.29 Chronic pain syndrome G89.4
[2023-05-01 12:15] VITALS: BP 132/58; PULSE 70; RESP 16; O2SAT 99; BMI 40.8
[2023-05-01 12:16] VITALS: BP 126/82; PULSE 85; RESP 16; O2SAT 98; BMI 40.8
== END 2023-05-01 12:08 | disposition home or self-care (01) ==
LOC: HO.PMCPRC 11:42
PROVIDERS: PCP Nurse Practitioner Family; Visit Provider Anesthesiology
DX: M46.1 Sacroiliitis, not elsewhere classified (principal)
CPT/HCPCS: 27096

== ENCOUNTER 2023-05-07 09:59 | Outpatient (AMB) | payer OTHER, SELFPAY ==
--- NOTE | 2023-05-07 10:21 | A.OFFVIS_ITS ---
Intake Vital Signs 05/07/23 10:25 Height 5 ft 2 in Weight 222 lb BMI 40.6 BP 130/80 Blood Pressure Location Lt brachial Position Sitting Respiration 16 Pulse 67 Pulse Source Pulse Oximeter Pulse Oximetry (%) 96 Oxygen Delivery Method Room Air Intake Visit Reasons: RIGHT DIAGNOSTIC SIJ INJECTION Intake Note: patient comes in for post op. Allergies Nuts Allergy (Severe, Uncoded 03/23/23 13:34) Anaphylaxis HPI HPI Comments History of Present Illness Details Mya is back in my office with results of the sacroiliac joint injection on the right which was done 7 days ago. She reports 100% pain improvement for the 1st 24 hours after the injection. She reported better mobility better social interactions better activity of daily living. We had conversation today with the help of certified office stakeholder manager Stefanie Meraz. She reported that her pain became more strong after this period of time however she still feels some pain improvement. She reports heavy sensation in her lower back rather than pain. She was given options of treating her condition with: 1. Steroid injections, risks and benefits explained. The patient is currently on weight loss program and very much concerned about possibility of the steroids to retard her weight loss. 2. PNS stim wave of sacroiliac joint innervation stimulation. 3. Sacroiliac joint fusion. The patient chose to go for PNS of sacroiliac joint innervation. She needs to go to psychological evaluation. Needs to be done in her tetlin [place]. I will schedule her for the appointment with [facility]. Prior: [place]-speaking 42 years old female, complains on pain in the lower back with radiation into the bilateral flanks as well as radiation of the pain into the right lower extremity.? She reports that radiation goes all the way down to her ankle.? She sometimes feels significant discomfort in the projection of the left buttock as well.? 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 She also contribute her pain to obesity.? She reports that her right leg is shorter than the left 1.She is not working currently.? She is not disabled.? She reports past medical history of hypertension asthma and bipolar disorder she reports that she is deaf for the left ear.? She reports history of meningitis as a child.? Her past surgical history significant for x1 and hysterectomy x1.? Social history currently not working willing to go to work, she does not smoke cigarettes does not drink alcohol she drinks to be caffeinated beverages to big glasses of coffee she denies recreational drugs.? She drinks soda on occasion but no more often than once in 2 months [facility] Medical History Deafness in right ear Hearing difficulty of left ear Lumbar back pain Meningitis Obesity Spondyloarthropathy of lumbar spine Stress incontinence Surgical History H/O hysterectomy with unilateral oophorectomy Family History Mother Cervical cancer, Onset Age: 40 Social History Housing: Assisted Living Facility Patient Tobacco Use Status: Never used Tobacco e-Cigarette/Vaping Use: Never Used service: No Current occupational status: unemployed Cognitive needs: No Hearing needs: No Vision needs: No Review of Systems Const All systems reviewed & are unremarkable except as noted in HPI and below ENT Reports Normal hearing present Neuro Reports Normal hearing present, Denies Abnormal speech present, Denies confusion and Denies Sensory deficit (Neuro) Psych Denies confusion Physical Exam Vital Signs: Last Vital Signs Pulse 67 05/07/23 10:25 Resp 16 05/07/23 10:25 BP 130/80 05/07/23 10:25 Pulse Ox 96 05/07/23 10:25 Oxygen Delivery Method Room Air 05/07/23 10:25 BMI result Body Mass Index 40.6 Const General: no acute distress; No confusion Nutritional Appearance: obese morbidly obese Orientation/consciousness: patient oriented x3 and No confusion Eyes General: appearance normal, both eyes and all related structures Pupils: Equal, round and reactive pupils present EOM: EOMs intact bilaterally Neck Neck: Yes full ROM Chest Chest palpation & inspection: normal inspection of the chest Resp Effort & Inspection: normal respiratory effort, able to speak in complete sentences, normal respiratory pattern, no audible wheezes and no cough Cardio Jugular venous distension: no JVD GI Inspection: Yes normal to inspection Back/Spine/Pelvis Other: Able to stand on bilateral tiptoes in bilateral heels without difficulty. The right leg is shorter than left most likely due to childhood illness. Able to flex herself all the way down forward reports minimal discomfort. Reports severe pain while flexing backwards. SLR is negative on the left and equivocal on the right. Lassegue is negative on the left and equivocal on the right. Loading test is positive bilaterally. Stinchfield test is positive on the right. Gaenslen test is positive on the right. Flor finger test is positive on the right. Neuro General: patient oriented x3, gait normal and No confusion Cranial nerves: Yes CN's II-XII intact bilaterally, Yes Equal, round and reacti ve pupils present, Yes Normal hearing present and Yes Ability to bilaterally elevate shoulders present Speech: No Abnormal speech present Gait exam (Neuro): Normal gait present Motor exam (neuro): 5/5 motor strength present throughout Sensory Exam: No Sensory deficit (Neuro) Extrem General: No pedal edema Psych Speech and movement: Normal speech and movement present Affect: normal affect Attitude: cooperative Thought process: Normal thought process present Thought content: Normal thought content present Insight: Good insight present (Psych) Judgement: Good judgement present (Psych) Assessment & Plan Assessment & Plan (1) Spondyloarthropathy of lumbar spine: Code(s): M47.816 - Spondylosis without myelopathy or radiculopathy, lumbar region (2) Lumbar back pain: Code(s): M54.50 - Low back pain, unspecified (3) Spondylosis of lumbar region without myelopathy or radiculopathy: Code(s): M47.816 - Spondylosis without myelopathy or radiculopathy, lumbar region (4) Sacroiliitis: Code(s): M46.1 - Sacroiliitis, not elsewhere classified (5) Chronic right sacroiliac joint pain: Code(s): M53.3 - Sacrococcygeal disorders, not elsewhere classified; G89.29 - Other chronic pain (6) Chronic pain syndrome: Code(s): G89.4 - Chronic pain syndrome Plan 1. She went for physical therapy and it gave her minimal pain relief however the result is short lived. 2. Right diagnostic SI joint injection resulted in excellent pain relief narrow pain with no steroids Aleve her pain for full 24 hours. 3. Medial branch block was also considered but now is out of question because of the good results of SI joint injection. 4. She may continue Naprosyn but when we will do the permanent implant she needs to stop it. 5. I will schedule her for psychological evaluation and as soon as it is ready I will schedule her for trial of PNS stim wave. Coding Level of Care Code Est Pt Level 4 (53300) Diagnoses Spondyloarthropathy of lumbar spine M47.816 Lumbar back pain M54.50 Spondylosis of lumbar region without myelopathy or radiculopathy M47.816 Sacroiliitis M46.1 Chronic right sacroiliac joint pain M53.3; G89.29 Chronic pain syndrome G89.4
[2023-05-07 10:25] VITALS: BP 130/80; PULSE 67; RESP 16; O2SAT 96; BMI 40.6
== END 2023-05-07 10:51 | disposition home or self-care (01) ==
PROVIDERS: PCP Nurse Practitioner Family; Visit Provider Anesthesiology
DX: M47.816 Spondylosis without myelopathy or radiculopathy, lumbar region (principal); M54.50 Low back pain, unspecified; M46.1 Sacroiliitis, not elsewhere classified; M53.3 Sacrococcygeal disorders, not elsewhere classified; G89.29 Other chronic pain; G89.4 Chronic pain syndrome
CPT/HCPCS: 99214

== ENCOUNTER → 2023-05-07 09:59 | Outpatient (BNVA) | payer OTHER, SELFPAY | PROVIDERS: PCP Nurse Practitioner Family; Visit Provider Anesthesiology | DX: G89.4 Chronic pain syndrome (principal); M47.816 Spondylosis without myelopathy or radiculopathy, lumbar region; M54.50 Low back pain, unspecified; M46.1 Sacroiliitis, not elsewhere classified; G89.29 Other chronic pain; M53.3 Sacrococcygeal disorders, not elsewhere classified | CPT/HCPCS: 99212 ==

== ENCOUNTER 2023-05-10 14:00 | Outpatient (RCR) | payer OTHER, SELFPAY ==
--- NOTE | 2023-03-13 11:11 | MHC.PT.EP ---
[facility] [place] Office [place] Office [place] Office [address] Margie Leong [address] [phone] F: [phone] F: [phone] F: [phone] F: [phone] Physical Therapy Plan of Care Date of Evaluation: Date of Surgery: N/A Diagnosis: spondylosis of lumbar region without myelopathy (RC) Assessment: pt is a 42 y/o female presenting to physical therapy w/ referring diagnosis of sacrococcygeal disorders, not elsewhere classified; sacroiliitis, not elsewhere classified. She does have (+) moderate muscle atrophy of iliopsoas on R side which may be causing muscle imbalance around R sacroiliac region. ? referred pain versus nerve tension. Will continue to monitor and treat or refer as appropriate. Impairments include pain, decreased range of motion, decreased strength, impaired functional mobility, impaired postural awareness, and altered ambulation mechanics. pt is a fair candidate for skilled PT due to age, potential remediation of impairments, typical disease/condition progression and prognosis, comorbidities, and motivation. pt would benefit from skilled PT intervention to provide a tailored strengthening and stretching exercise program, functional training, gait training, postural re-training, neuromuscular re-education, modalities as needed for pain, equipment safety demonstration. Frequency and Duration: The patient will be seen 2x/wk for 4 wks Short Term Goals: pt will be I w/ HEP to promote self-management of condition. pt will demo proper sitting posture w/ lumbar roll to promote neutral spine w/ seated ADLs. Usp Goals: pt will report a statistically significant improvement in self-reported outcome measure, Rj, to promote return to PLOF. pt will improve B hip flexion to 5/5 to promote ease in functional mobility including ambulation. Treatment Plan: Modalities to reduce pain, spasms and effusion. Manual therapy to restore motion and function. Therapeutic exercise to improve strength and flexibility. Neuromuscular re-education for posture and balance. Therapeutic activities to return to functional activities of daily living. Electronically signed by: Lorraine Mora PT, DPT Please sign and return to therapist. Thank you for your referral.
--- NOTE | 2023-05-31 13:28 | MHC.PT.DC ---
[facility] [place] [facility] [place] [facility] [place] [facility] [address] Margie Leong [address] [phone] F: [phone] F: [phone] F: [phone] F: [phone] Physical Therapy Discharge Report Diagnosis: spondylosis of lumbar region without myelopathy (RC) Date of Surgery: N/A Date of Evaluation: 03/12/23 Date of Discharge: 05/31/23 Treatments to Date: 8 Cancellations to Date: 3 No Shows to Date: 0 Discharge Status: Improved Function Independent with HEP Discharge Summary: pt mentioned she has been managing her back pain w/ injections and pilates at home. She has a plethora of exercises to work on at this time. This therapist was working on a complete list of all ther ex per pt's request; however, pt walked out before list could be generated. She is D/C'd at this time. Electronically signed by: Lorraine Jade PT, DPT Please sign and return to therapist. Thank you for your referral.
== END 2023-05-31 13:28 | disposition home or self-care (01) ==
LOC: HO.PT 14:00
PROVIDERS: PCP Nurse Practitioner Family; Visit Provider Anesthesiology
DX: M53.3 Sacrococcygeal disorders, not elsewhere classified (principal); M46.1 Sacroiliitis, not elsewhere classified
CPT/HCPCS: 97110; 97162

== ENCOUNTER → 2023-05-15 15:00 | Outpatient (BNVA) | payer OTHER, SELFPAY | PROVIDERS: PCP Nurse Practitioner Family; Visit Provider Physician Assistant Surgical ==

== ENCOUNTER 2023-05-21 10:57 | Outpatient (AMB) | payer OTHER, SELFPAY ==
--- NOTE | 2023-05-21 11:02 | MHC.OFFVISWM ---
Intake VS Expanded 05/21/23 11:06 Height 5 ft 2 in Weight 216 lb 9.6 oz BMI 39.6 BP 131/60 Blood Pressure Location Rt brachial Blood Pressure Position Sitting Pulse 80 Pulse Source Pulse Oximeter Temp 96.1 F L Temperature Source Temporal Artery Scan Pulse Oximetry 98 Oxygen Delivery Method Room Air Body Fat 90.4 Body Fat Percentage 41.3 Free Fat Mass 126.2 Muscle Mass 119.8 Visceral Mass 11.0 Water Mass 90.0 BMR 1,752 Intake Visit Reasons: (ov) SWL fu Video Games Storywriter Required: Yes Video Games Storywriter Name: office cmi Allergies Nuts Allergy (Severe, Uncoded 03/23/23 13:34) Anaphylaxis Medication List - Last Reconciled 05/21/23 by GINETTE Sellers albuterol sulfate 90 mcg/actuation (ProAir HFA) 2 puffs inhalation Q4-6H PRN cetirizine 10 mg PO DAILY cholecalciferol (vitamin D3) 50 mcg PO DAILY escitalopram oxalate 10 mg PO DAILY ibuprofen 800 mg PO Q8H PRN lisinopril 10 mg PO DAILY miconazole nitrate put 1 supp in vagina at bedtime x 3nites;use cream on area outside vagina 2X/day for up to 7days vaginal montelukast 10 mg PO DAILY quetiapine 50 mg PO DAILY HPI HPI Comments History of Present Illness Details The patient is a pleasant 42 year old female who returns to the clinic for pre-operative surgical weight loss management. They were last seen in the office on 04/25/23, recorded weight at that time was 223.8 pounds, with a BMI of 40.9. Today's weight is 216.6 pounds and BMI is 39.6. There has been a weight loss of 7.2 pounds since initiating the surgical weight loss program on 04/25/23 with a total body weight loss of 3.2 %. Given her current living situation of a fpc, it was unclear at her initial visit if this program would be able to be done. She states she is not sure she wants to continue in the SWL pathway. She is still living in the fpc. She is not following the meal plan. SHe has been making better choices and eating less but not following the plan. Recommended meal plan includes: Start with 2 Premier Protein shakes ([employer], [employer], [employer]) First shake (1 scoop in 8 oz low fat milk) at 11am-1pm, Second shake (1 scoop in 8 oz low fat milk) at? 3pm-5pm 1 protein bar ([employer] Perfect bars at [employer], [employer], or [employer]) at 5pm-7pm. Dinner at 7pm (8 forks of protein and 8 forks of salad/vegetables) Current exercise plan includes: nothing PFSH Medical History Deafness in right ear Hearing difficulty of left ear Lumbar back pain Meningitis Obesity Spondyloarthropathy of lumbar spine Stress incontinence Surgical History H/O hysterectomy with unilateral oophorectomy Family History Mother Cervical cancer, Onset Age: 40 Social History Housing: Assisted Living Facility Patient Tobacco Use Status: Never used Tobacco e-Cigarette/Vaping Use: Never Used service: No Current occupational status: unemployed Cognitive needs: No Hearing needs: No Vision needs: No Review of Systems Const All systems reviewed & are unremarkable except as noted in HPI and below Physical Exam Const General: healthy appearing and no acute distress Resp Effort & Inspection: normal respiratory effort Auscultation: clear to auscultation bilaterally Cardio Rate: regular rate Rhythm: regular rhythm GI Auscultation: normal bowel sounds Extrem General: Yes normal to inspection Assessment & Plan Assessment & Plan (1) Morbid obesity: Code(s): E66.01 - Morbid (severe) obesity due to excess calories Plan: She is going to w/d from the program 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
[2023-05-21 11:06] VITALS: BP 131/60; PULSE 80; TEMP 35.6; O2SAT 98; BMI 39.6
== END 2023-05-21 11:23 | disposition home or self-care (01) ==
PROVIDERS: PCP Internal Medicine; Visit Provider Physician Assistant Surgical
DX: E66.01 Morbid (severe) obesity due to excess calories (principal); Z68.39 Body mass index [BMI] 39.0-39.9, adult
CPT/HCPCS: 99213

== ENCOUNTER → 2023-05-21 10:57 | Outpatient (BNVA) | payer OTHER, SELFPAY | PROVIDERS: PCP Internal Medicine; Visit Provider Physician Assistant Surgical | DX: E66.01 Morbid (severe) obesity due to excess calories (principal); Z68.39 Body mass index [BMI] 39.0-39.9, adult | CPT/HCPCS: 99212 ==

== ENCOUNTER 2023-06-15 13:53 | Outpatient (AMB) | payer OTHER, SELFPAY ==
--- NOTE | 2023-06-15 14:01 | A.OFFPC_ITS ---
Vital Signs 06/15/23 14:02 Height 5 ft 2 in Weight 222 lb BMI 40.6 BP 132/68 Blood Pressure Location Lt brachial Position Sitting Pulse 70 Pulse Source Pulse Oximeter Pulse Oximetry (%) 98 Oxygen Delivery Method Room Air Intake Visit Reasons: Bipolar,back pain follow up Allergies Nuts Allergy (Severe, Uncoded 06/15/23 14:20) Anaphylaxis Medication List - Last Reconciled 06/15/23 by CAREN Hannon albuterol sulfate 90 mcg/actuation (ProAir HFA) 2 puffs inhalation Q4-6H PRN cetirizine 10 mg PO DAILY cholecalciferol (vitamin D3) 50 mcg PO DAILY escitalopram oxalate 10 mg PO DAILY ibuprofen 800 mg PO Q8H PRN lisinopril 10 mg PO DAILY miconazole nitrate put 1 supp in vagina at bedtime x 3nites;use cream on area outside vagina 2X/day for up to 7days vaginal montelukast 10 mg PO DAILY quetiapine 50 mg PO DAILY Tobacco use date assessed: 11/27/22 Dental Screening Dental Screen Date: 06/15/23 Did you have a dental visit in the last 12 months?: Yes Did you have a dental problem in the last 6 months where you did not have access to dental care?: No Was dental information given to patient?: Patient has dentist HPI HPI Comments History of Present Illness Details 43-year-old female new patient history of hypertension,low back pain, asthma and bipolar type 1 and obesity. Past medical history significant for deafness in the right ear and hearing difficulty in the left, patient reports was never contacted by speech and hearing in requesting a new referral, referral entered to [facility] speech and hearing as requested by patient. Patient also reports that she has abdominal hernia and she would like to see a general surg tha as it has been causing her some discomfort. Review of the notes patient followed by pain management for her low back pain he received a sacroiliac joint injection. Patient states today that she is starting to have pain in her back again, patient advised to call Pain Management to follow-up with them. Patient was also previously being followed by weight management and was following the diet plan however she reports that she was not able to continue with this as it made her feel sick, she stated that she did lose 7 lb following the plan but since stopping it that she has gained it all back. States she decided she does not want to have bariatric surgery said she is no longer following up with them. [facility] Medical History Deafness in right ear Hearing difficulty of left ear Lumbar back pain Meningitis Obesity Spondyloarthropathy of lumbar spine Stress incontinence Surgical History H/O hysterectomy with unilateral oophorectomy Family History (Updated 06/15/23 @ 14:03 by Umu Umana CMA) Mother Cervical cancer, Onset Age: 40 Social History Housing: Assisted Living Facility Patient Tobacco Use Status: Never used Tobacco e-Cigarette/Vaping Use: Never Used service: No Current occupational status: unemployed Cognitive needs: No Hearing needs: No Vision needs: No Questionnaire Thrive Questionnaire Date Thrive assessed: 11/27/22 AUDIT C Alcohol Use Questionnaire (AUDIT-C) 1. How often do you have a drink containing alcohol?: Never 3. How often do you have six or more drinks on one occasion?: Never Total Score: 0 Score Reviewed/Action Taken: No TRAVIS-7 AMB Questionnaire TRAVIS-7 Date TRAVIS - 7 assessed: 11/27/22 Source: Developed by Drs. Ernst Harris, Marcia Saini, Benedict Myas and colleagues, with an educational kizzy from [employer]. Review of Systems Const Denies chills, Denies fatigue, Denies fever(s) and Denies poor appetite Eyes Denies no additional complaints ENT Reports Normal hearing present Card Denies chest pain, Denies syncope, Denies rapid heart rate and Denies dyspnea Resp Denies cough and Denies dyspnea GI Denies change in stool character, Denies constipation, Denies diarrhea, Denies nausea, Denies vomiting and Reports other (hernia ) Denies urinary frequency, Denies dysuria and Denies urinary urgency Neuro Reports Normal hearing present, Denies confusion and Denies syncope Psych Denies confusion Endo Denies fatigue Physical exam (Primary Care) Vital Signs: Last Vital Signs Pulse 70 06/15/23 14:02 BP 132/68 06/15/23 14:02 Pulse Ox 98 06/15/23 14:02 Oxygen Delivery Method Room Air 06/15/23 14:02 BMI result Body Mass Index 40.6 Tobacco/Smoking Status: Tobacco use Status Tobacco use date assessed 11/27/22 06/15/23 14:06 Patient Tobacco Use Status Never used Tobacco 06/15/23 14:06 e-Cigarette/Vaping Use Never Used 06/15/23 14:06 Thrive Assessment: Date of Thrive Assessment Date Thrive assessed 11/27/22 06/15/23 14:06 Const General: No confusion Orientation/consciousness: No confusion HENMT Head: Yes normocephalic and Yes atraumatic Eyes Conjunctivae: conjunctivae normal Chest Chest palpation & inspection: normal inspection of the chest Resp Effort & Inspection: normal respiratory effort Auscultation: clear to auscultation bilaterally, no crackles, no rhonchi and no wheezes Cardio Rate: regular rate Rhythm: regular rhythm Heart sounds: S1 normal heart sound present and S2 normal heart sound present GI Inspection: Yes normal to inspection Palpation (GI): Soft to palpation, nontender and No hepatosplenomegaly present Auscultation: normoactive bowel sounds General: Yes no CVA tenderness Back/Spine/Pelvis Back: no CVA tenderness Neuro General: No confusion Cranial nerves: Yes Normal hearing present Extrem General: No edema Assessment and Plan Assessment & Plan (1) Hernia: Code(s): K46.9 - Unspecified abdominal hernia without obstruction or gangrene Plan: Referral entered to general surgery as requested by patient. (2) Morbid obesity: Code(s): E66.01 - Morbid (severe) obesity due to excess calories Plan: Patient advised to eat healthy and exercise to reduce BMI. (3) Chronic right sacroiliac joint pain: Code(s): M53.3 - Sacrococcygeal disorders, not elsewhere classified; G89.29 - Other chronic pain Plan: Patient advised to call Pain Management to follow-up. (4) Hearing difficulty of left ear: Code(s): H91.92 - Unspecified hearing loss, left ear Plan: Referral entered to [facility] speech and hearing as requested by patient she states she was never contacted by [facility] speech and hearing. (5) Hypertension: Code(s): I10 - Essential (primary) hypertension Plan: Continue on lisinopril 10 mg daily. Blood pressure goal less than 140/90. Follow low-salt diet and exercise. Plan Follow-up in 3 months. Orders: Referrals General Surgery Referral K46.9 - Unspecified abdominal hernia without obstruction or gangrene Coding Level of Care Code Est Pt Level 4 (08023) Diagnoses Hernia K46.9 Morbid obesity E66.01 Chronic right sacroiliac joint pain M53.3; G89.29 Hearing difficulty of left ear H91.92 Hypertension I10
[2023-06-15 14:02] VITALS: BP 132/68; PULSE 70; O2SAT 98; BMI 40.6
== END 2023-06-15 14:53 | disposition home or self-care (01) ==
PROVIDERS: PCP Internal Medicine; Visit Provider Nurse Practitioner Family
DX: K46.9 Unspecified abdominal hernia without obstruction or gangrene (principal); E66.01 Morbid (severe) obesity due to excess calories; Z68.41 Body mass index [BMI] 40.0-44.9, adult; I10 Essential (primary) hypertension; M53.3 Sacrococcygeal disorders, not elsewhere classified; G89.29 Other chronic pain
CPT/HCPCS: 99214

== ENCOUNTER 2023-07-10 14:19 | Outpatient (AMB) | payer OTHER, SELFPAY ==
--- NOTE | 2023-07-10 14:20 | A.OFFVIS_ITS ---
Intake Vital Signs 07/10/23 14:24 Height 5 ft 2 in BP 141/81 H Blood Pressure Location Rt brachial Position Sitting Pulse 80 Intake Visit Reasons: abdominal hernia Intake Note: This patient presents for an assessment for abdominal hernia. Patient c/o; reports having a hysterectomy in 2006 which she then developed a hernia, Hx of section, reports occasional pain, denies problems with bowel movements, reports gassiness and bloating. Material Assembler Required: Yes Material Assembler Language: Crop Adjuster Name: Kelly Information Interpreted: non-clinical & clinical Accompanied by: Self / Same As Patient Allergies detergent Allergy (Severe, Uncoded 07/10/23 14:25) Unknown Nuts Allergy (Severe, Uncoded 07/10/23 14:25) Anaphylaxis Medication List - Last Reconciled 07/10/23 by Amrik Sanon MD albuterol sulfate 90 mcg/actuation (ProAir HFA) 2 puffs inhalation Q4-6H PRN cetirizine 10 mg PO DAILY cholecalciferol (vitamin D3) 50 mcg PO DAILY escitalopram oxalate 10 mg PO DAILY ibuprofen 800 mg PO Q8H PRN lisinopril 10 mg PO DAILY miconazole nitrate put 1 supp in vagina at bedtime x 3nites;use cream on area outside vagina 2X/day for up to 7days vaginal montelukast 10 mg PO DAILY quetiapine 50 mg PO DAILY HPI HPI Comments History of Present Illness Details 43-year-old female patient presenting fo r evaluation of an incisional hernia. She reports undergoing 3 Caesarean sections and then later underwent an abdominal hysterectomy in 2006. She now feels a lump in the lower abdomen which has been increasing in size. She reports increased discomfort especially with coughing. This is made worse with her asthma. In addition she notes some urinary incontinence with coughing. She was evaluated by her pile trimmer who felt she had developed a hernia in the lower abdomen. She denies any previous radiologic workup. [facility] Medical History Stress incontinence Spondyloarthropathy of lumbar spine Lumbar back pain Meningitis Hearing difficulty of left ear Deafness in right ear Obesity Surgical History H/O section H/O hysterectomy with unilateral oophorectomy Family History Mother Cervical cancer, Onset Age: 40 Social History Housing: Assisted Living Facility Patient Tobacco Use Status: Never used Tobacco e-Cigarette/Vaping Use: Never Used service: No Current occupational status: unemployed Cognitive needs: No Hearing needs: No Vision needs: No Review of Systems Const All systems reviewed & are unremarkable except as noted in HPI and below Denies chills, Denies fever(s), Denies headache(s), Denies poor appetite and Denies weakness ENT Denies headache(s) Card Denies chest pain, Denies irregular heart rhythm, Denies palpitations and Denies dyspnea Resp Denies cough, Denies excessive phlegm production and Denies dyspnea GI Reports abdominal pain, Reports bloating, Denies change in bowel habits, Denies constipation, Denies heartburn, Denies diarrhea, Denies nausea and Denies vomiting Denies urinary frequency and Reports urinary incontinence Musc Denies back pain, Denies muscle weakness and Denies numbness Skin/Breast Denies changing lesions and Denies unusual bruising Neuro Denies headache(s), Denies numbness, Denies paresthesias and Denies weakness Psych Denies anxiety and Denies depression Endo Denies palpitations [place]/Lymph Denies lymphadenopathy Physical Exam Const General: cooperative and no acute distress Nutritional Appearance: well nourished Orientation/consciousness: patient oriented x3 Limitations: no limitations HEENT Head: Yes normocephalic and Yes atraumatic Ears: hearing grossly normal bilaterally Resp Effort & Inspection: normal respiratory effort, no audible wheezes, no cough and no respiratory distress Cardio Jugular venous distension: no JVD GI Other: Soft, nondistended, large pannus, palpable hernia is noted in lower abdomen in the standing position with Valsalva maneuvers. It is difficult to feel the edges of the hernia to know the exact size. Hernias not palpable in the supine position. Inspection: Yes normal to inspection Skin Other: Warm, dry, no rash Neuro General: patient oriented x3 Extrem General: Yes no clubbing, cyanosis or edema Assessment & Plan Assessment & Plan (1) Incisional hernia of anterior abdominal wall without obstruction or gangrene: Code(s): K43.2 - Incisional hernia without obstruction or gangrene Plan 43-year-old female patient with numerous previous abdominal surgeries now presenting with a probable incisional hernia in the lower abdomen. On examination there is a palpable hernia which is difficult to feel due to the patient's body habitus. I recommended further workup with CT abdomen and pelvis to better identify the extent of the hernia to assist in surgical planning. I have asked her to return following the study to review the results and discuss treatment options. She expressed understanding and agrees with the plan. Orders: Orders CT abdomen pelvis wo IV con Today K43.2 - Incisional hernia without obstruction or gangrene Coding Level of Care Code New Pt Level 4 (00453) Diagnoses Incisional hernia of anterior abdominal wall without obstruction or gangrene K43.2
[2023-07-10 14:24] VITALS: BP 141/81; PULSE 80
== END 2023-07-10 14:49 | disposition home or self-care (01) ==
PROVIDERS: PCP Nurse Practitioner Family; Visit Provider Surgery
DX: K43.2 Incisional hernia without obstruction or gangrene (principal)
CPT/HCPCS: 99204

== ENCOUNTER → 2023-07-10 14:19 | Outpatient (BNVA) | payer OTHER, SELFPAY | PROVIDERS: PCP Nurse Practitioner Family; Visit Provider Surgery ==

== ENCOUNTER 2023-08-23 08:52 | Outpatient (AMB) | payer OTHER, SELFPAY ==
--- NOTE | 2023-08-23 09:04 | MHC.OFFVIS ---
Intake Vital Signs 08/23/23 09:20 Height 5 ft 2 in Weight 226 lb BMI 41.3 BP 140/60 H Blood Pressure Location Lt brachial Position Sitting Respiration 16 Pulse 67 Pulse Source Pulse Oximeter Pulse Oximetry (%) 96 Oxygen Delivery Method Room Air Intake Visit Reasons: BACK AND LEFT ARM PAIN/CONFIRMED Intake Note: patient comes in for back and left arm pain. Pain level is 4/10. Allergies detergent Allergy (Severe, Uncoded 07/10/23 14:25) Unknown Nuts Allergy (Severe, Uncoded 07/10/23 14:25) Anaphylaxis HPI HPI Comments History of Present Illness Details Mya is back in my office with new complains on pain in the neck with radiation into bilateral upper extremities all the way to her wrists but not into her fingers. She also complains on pain in the lower back. She received diagnostic sacroiliac joint injection for the lower back pain and she had 100% pain improvement for 24 hours. She was given 3 options of treatment including steroid injections, PNS stimulation and sacroiliac joint fusion. She did not want steroid injections because it would make her to gain more weight, she did not like the idea of fusion because it is too invasive. She would like to try a PNS stimulation for the sacroiliac joint pain. When [facility] logical evaluation was calling her to schedule psychological evaluation for pain as stimulation she told him that she is no longer interested. However today she changed her mind and she decided to go for psychological evaluation. We will schedule her again. As of her cervical pain with radiation into bilateral upper extremities she took ibuprofen for this pain but never had physical therapy, she never had any muscle relaxants. I explained to her that I will start her on muscle relaxants tizanidine 2 mg t.i.d. and I also will send her for physical therapy. After that we will evaluate pain in the neck. She already reported to me that losing 7 lb of weight made her pain much better. I recommended her diet and exercise to lose her weight. She agreed with me on that. I recommended her to perform low impact aerobic exercises the swimming, elliptical machine, stationary bicycle. Prior: Azeri-speaking 42 years old female, complains on pain in the lower back with radiation into the bilateral flanks as well as radiation of the pain into the right lower extremity.? She reports that radiation goes all the way down to her ankle.? She sometimes feels significant discomfort in the projection of the left buttock as well.? 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 She also contribute her pain to obesity.? She reports that her right leg is shorter than the left 1.She is not working currently.? She is not disabled.? She reports past medical history of hypertension asthma and bipolar disorder she reports that she is deaf for the left ear.? She reports history of meningitis as a child.? Her past surgical history significant for x1 and hysterectomy x1.? Social history currently not working willing to go to work, she does not smoke cigarettes does not drink alcohol she drinks to be caffeinated beverages to big glasses of coffee she denies recreational drugs.? She drinks soda on occasion but no more often than once in 2 months FORMERLY [facility], [facility]1983 Medical History Stress incontinence Spondyloarthropathy of lumbar spine Lumbar back pain Meningitis Hearing difficulty of left ear Deafness in right ear Obesity Surgical History H/O section H/O hysterectomy with unilateral oophorectomy Family History Mother Cervical cancer, Onset Age: 40 Social History Housing: Assisted Living Facility Patient Tobacco Use Status: Never used Tobacco e-Cigarette/Vaping Use: Never Used service: No Current occupational status: unemployed Cognitive needs: No Hearing needs: No Vision needs: No Review of Systems Const All systems reviewed & are unremarkable except as noted in HPI and below Physical Exam Vital Signs: Last Vital Signs Pulse 67 08/23/23 09:20 Resp 16 08/23/23 09:20 BP 140/60 H 08/23/23 09:20 Pulse Ox 96 08/23/23 09:20 Oxygen Delivery Method Room Air 08/23/23 09:20 BMI result Body Mass Index 41.3 Neck Other: Limited range of motion tenderness of palpation on bilateral paraspinal spinal region denies increase of the pain on Valsalva maneuver. Neck: No full ROM Assessment & Plan Assessment & Plan (1) Spondyloarthropathy of lumbar spine: Code(s): M47.816 - Spondylosis without myelopathy or radiculopathy, lumbar region (2) Lumbar back pain: Code(s): M54.50 - Low back pain, unspecified (3) Spondylosis of lumbar region without myelopathy or radiculopathy: Code(s): M47.816 - Spondylosis without myelopathy or radiculopathy, lumbar region (4) Sacroiliitis: Code(s): M46.1 - Sacroiliitis, not elsewhere classified (5) Chronic right sacroiliac joint pain: Code(s): M53.3 - Sacrococcygeal disorders, not elsewhere classified; G89.29 - Other chronic pain (6) Chronic pain syndrome: Code(s): G89.4 - Chronic pain syndrome (7) Spondylosis of cervical spine: Code(s): M47.812 - Spondylosis without myelopathy or radiculopathy, cervical region (8) Degeneration, intervertebral disc, cervical: Code(s): M50.30 - Other cervical disc degeneration, unspecified cervical region Plan 1. She went for physical therapy for the pain the projection of sacroiliac joint and it gave her minimal pain relief however the result is short lived. She never went for physical therapy for her cervical spine she will be sent for physical therapy today. 2. Right diagnostic SI joint injection resulted in excellent pain relief narrow pain with no steroids alleviate her pain for full 24 hours. She wanted to proceed for PNS of the right SI joint innervation however she somewhat forgot that and rejected [facility] psychological evaluation. She wants to get evaluated again. We will put her on the schedule. 3. As of her cervical pain I will schedule her for the physical therapy, I will start her on tizanidine. I recommend low impact aerobic exercise and I recommend diet. If this will not help her pain we will consider some cervical injections. Meanwhile I am going to send her for x-ray of the cervical spine. 4. She may continue ibuprofen for her pain is needed. Orders: Orders PT Evaluation and Treatment Today M47.812 - Spondylosis without myelopathy or radiculopathy, cervical region, M50.30 - Other cervical disc degeneration, unspecified cervical region XR cervical spine 4V Today M47.812 - Spondylosis without myelopathy or radiculopathy, cervical region, M50.30 - Other cervical disc degeneration, unspecified cervical region Medications: New tizanidine 2 mg PO TID PRN 90 tabs 8RF muscle spasticity 30 days Patient Instructions: I here by testify that I spent 42 minutes in conversation with this patient, as well as planning her care, as well as organizing this note, as well as ordering medications and procedures for this patient. Coding Level of Care Code Est Pt Level 5 (26120) Diagnoses Spondyloarthropathy of lumbar spine M47.816 Lumbar back pain M54.50 Spondylosis of lumbar region without myelopathy or radiculopathy M47.816 Sacroiliitis M46.1 Chronic right sacroiliac joint pain M53.3; G89.29 Chronic pain syndrome G89.4 Spondylosis of cervical spine M47.812 Degeneration, intervertebral disc, cervical M50.30
[2023-08-23 09:20] VITALS: BP 140/60; PULSE 67; RESP 16; O2SAT 96; BMI 41.3
== END 2023-08-23 10:09 | disposition home or self-care (01) ==
PROVIDERS: PCP Nurse Practitioner Family; Visit Provider Anesthesiology
DX: M47.816 Spondylosis without myelopathy or radiculopathy, lumbar region (principal); M54.50 Low back pain, unspecified; M46.1 Sacroiliitis, not elsewhere classified; M53.3 Sacrococcygeal disorders, not elsewhere classified; G89.29 Other chronic pain; G89.4 Chronic pain syndrome; M47.812 Spondylosis without myelopathy or radiculopathy, cervical region; M50.30 Other cervical disc degeneration, unspecified cervical region
CPT/HCPCS: 99215

== ENCOUNTER → 2023-08-23 08:52 | Outpatient (BNVA) | payer OTHER, SELFPAY | PROVIDERS: PCP Nurse Practitioner Family; Visit Provider Anesthesiology | DX: M47.816 Spondylosis without myelopathy or radiculopathy, lumbar region (principal); M54.50 Low back pain, unspecified; M46.1 Sacroiliitis, not elsewhere classified; M53.3 Sacrococcygeal disorders, not elsewhere classified; M47.812 Spondylosis without myelopathy or radiculopathy, cervical region; M50.30 Other cervical disc degeneration, unspecified cervical region; G89.29 Other chronic pain | CPT/HCPCS: 99212 ==

== ENCOUNTER 2023-08-24 16:26 | Outpatient (REF) | payer OTHER, SELFPAY ==
--- NOTE | ~2023-08-24 | CT_ITS ---
EXAMINATION: CT ABDOMEN AND PELVIS WITHOUT CONTRAST CLINICAL INFORMATION: Incisional hernia COMPARISON: None available. TECHNIQUE: Multidetector volumetric imaging was performed from the superior aspect of the liver through the pubic symphysis. Sagittal and coronal reformatted images were obtained on the technologist's workstation. Exam was done with the patient performing Valsalva maneuver. This CT examination was performed using dose optimization techniques as appropriate, variously including the following: *Automated exposure control *Adjustment of mA and/or kV according to patient size (this includes techniques or standardized protocols for targeted exams where dose is matched to indication/reason for exam; i.e. extremities or head) *Use of iterative reconstruction technique DLP: 691 mGy-cm FINDINGS: LUNG BASES: The visualized lung bases are unremarkable. LIVER, GALLBLADDER, AND BILIARY TREE: The liver is normal in size, shape, and attenuation. No focal hepatic lesion or biliary ductal dilatation is present. The gallbladder is unremarkable with no evidence of radiopaque gallstones, gallbladder wall thickening, or obvious pericholecystic inflammatory changes. PANCREAS: Unremarkable. SPLEEN: Unremarkable. ADRENAL GLANDS: Unremarkable. KIDNEYS AND URETERS: The kidneys are normal in size, shape, and attenuation. No hydronephrosis, hydroureter, or calculi seen. No perinephric stranding. BLADDER: Unremarkable. GASTROINTESTINAL TRACT: The small and large bowel are unremarkable. The appendix is unremarkable. ABDOMINAL WALL: There is a low ventral or suprapubic hernia containing fat. This measures 2 x 4 x 3 cm in AP transverse and longitudinal dimension. There may be a small right inguinal hernia containing fat. LYMPH NODES: Normal. VASCULAR: Unremarkable. PELVIC VISCERA: Unremarkable. OSSEOUS STRUCTURES: Degenerative changes of the spine. CT/CT abdomen pelvis wo IV con IMPRESSION: Small low ventral or suprapubic hernia containing fat. Question small right inguinal hernia containing fat. Fleischner guidelines were followed.
== END 2023-08-24 16:27 | disposition home or self-care (01) ==
LOC: HO.CT 16:26
PROVIDERS: PCP Nurse Practitioner Family; Visit Provider Surgery
DX: K43.2 Incisional hernia without obstruction or gangrene (principal)
CPT/HCPCS: 74176

== ENCOUNTER 2023-09-18 09:58 | Outpatient (AMB) | payer OTHER, SELFPAY ==
--- NOTE | 2023-09-18 10:07 | A.OFFVIS_ITS ---
Intake Vital Signs 3 09/18/23 10:15 Height 5 ft 2 in Weight 158 lb 11.725 oz BMI 29.0 BP 140/88 H Blood Pressure Location Lt brachial Position Sitting Intake Visit Reasons: CT scan results, following incisional hernia Intake Note: Patient is seen in office for CT scan results, following incisional hernia of anterior abdominal. Pt c/o: occasional stabbing pain, here for results Ct: 08/24/23 Dye Boarding Machine Operator Required: Yes Dye Boarding Machine Operator Language: Barrel Tester Name: Nerissa SUMMERS Information Interpreted: non-clinical & clinical Ramp And Cargo Supervisor: Ramp And Cargo Supervisor Present Accompanied by: Self / Same As Patient Allergies detergent Allergy (Severe, Uncoded 09/18/23 10:17) Unknown Nuts Allergy (Severe, Uncoded 09/18/23 10:17) Anaphylaxis Medication List - Last Reconciled 09/18/23 by Amrik Sanon MD albuterol sulfate 90 mcg/actuation (ProAir HFA) 2 puffs inhalation Q4-6H PRN cetirizine 10 mg PO DAILY cholecalciferol (vitamin D3) 50 mcg PO DAILY escitalopram oxalate 10 mg PO DAILY ibuprofen 800 mg PO Q8H PRN lisinopril 10 mg PO DAILY miconazole nitrate put 1 supp in vagina at bedtime x 3nites;use cream on area outside vagina 2X/day for up to 7days vaginal montelukast 10 mg PO DAILY quetiapine 50 mg PO DAILY tizanidine 2 mg PO TID PRN 30 days HPI HPI Comments 2 History of Present Illness0 Details 43-year-old female patient presenting fo r evaluation of an incisional hernia. She reports undergoing 3 Caesarean sections and then later underwent an abdominal hysterectomy in 2006. She now feels a lump in the lower abdomen which has been increasing in size. She reports increased discomfort especially with coughing. This is made worse with her asthma. In addition she notes some urinary incontinence with coughing. She was evaluated by her shrimping boat captain who felt she had developed a hernia in the lower abdomen. Previous examination was difficult due to body habitus therefore CT pelvis was obtained. She returns today to review the results of this study. An incisional hernia is identified in the lower abdomen with a defect measuring approximately 4 cm in diameter located just above the bladder. She returns today to review the CT results and discuss treatment options. [facility] Medical History Stress incontinence Spondyloarthropathy of lumbar spine Lumbar back pain Meningitis Hearing difficulty of left ear Deafness in right ear Obesity Surgical History H/O section H/O hysterectomy with unilateral oophorectomy Family History Mother Cervical cancer, Onset Age: 40 Housing: Assisted Living Facility Patient Tobacco Use Status: Never used Tobacco e-Cigarette/Vaping Use: Never Used service: No Current occupational status: unemployed Cognitive needs: No Hearing needs: No Vision needs: No Review of Systems Const All systems reviewed & are unremarkable except as noted in HPI and below Denies chills, Denies fever(s), Denies headache(s), Denies poor appetite and Denies weakness ENT Denies headache(s) Card Denies chest pain, Denies irregular heart rhythm, Denies palpitations and Denies dyspnea Resp Denies cough, Denies excessive phlegm production and Denies dyspnea GI Reports abdominal pain, Reports bloating, Denies change in bowel habits, Denies constipation, Denies heartburn, Denies diarrhea, Denies nausea and Denies vomiting Denies urinary frequency and Reports urinary incontinence Musc Reports back pain, Denies muscle weakness and Denies numbness Skin/Breast Denies changing lesions and Denies unusual bruising Neuro Denies headache(s), Denies numbness, Denies paresthesias and Denies weakness Psych Denies anxiety and Denies depression Endo Denies palpitations [place]/Lymph Denies lymphadenopathy Physical Exam Vital Signs: Last Vital Signs BP 140/88 H 09/18/23 10:15 BMI result Body Mass Index 29.0 Const General: cooperative and no acute distress Nutritional Appearance: well nourished Orientation/consciousness: patient oriented x3 Limitations: no limitations HEENT Head: Yes normocephalic and Yes atraumatic Ears: hearing grossly normal bilaterally Resp Effort & Inspection: normal respiratory effort, no audible wheezes, no cough and no respiratory distress Cardio Jugular venous distension: no JVD GI Other: Soft, nondistended, large pannus, palpable hernia is noted in lower abdomen in the standing position with Valsalva maneuvers. Hernias is not palpable in the supine position. Inspection: Yes normal to inspection Abdomen image: 2 1. Palpable hernia lower abdomen Skin Other: Warm, dry, no rash Neuro General: patient oriented x3 Extrem General: Yes no clubbing, cyanosis or edema Assessment & Plan Assessment & Plan (1) Incisional hernia of anterior abdominal wall without obstruction or gangrene: Code(s): K43.2 - Incisional hernia without obstruction or gangrene Plan 43-year-old female patient presenting with an incisional hernia which is been present for many years and is causing discomfort in the lower abdomen. CT of the pelvis confirms an incisional hernia located in the lower midline containing fatty tissue and located just above the bladder. We discussed repair of this incisional hernia with mesh including the risks, alternatives and benefits. She consents to a repair of the incisional hernia with mesh. This will be scheduled as a short-stay surgery at her earliest convenience. She understands that she will need to avoid lifting greater than 10 lb for the next month after the surgery. Coding Level of Care Code Est Pt Level 4 (74647) Diagnoses Incisional hernia of anterior abdominal wall without obstruction or gangrene K43.2
[2023-09-18 10:15] VITALS: BP 140/88; BMI 29.0
== END 2023-09-18 10:28 | disposition home or self-care (01) ==
PROVIDERS: PCP Nurse Practitioner Family; Visit Provider Surgery
DX: K43.2 Incisional hernia without obstruction or gangrene (principal)
CPT/HCPCS: 99214

== ENCOUNTER → 2023-09-18 09:58 | Outpatient (BNVA) | payer OTHER, SELFPAY | PROVIDERS: PCP Nurse Practitioner Family; Visit Provider Surgery | DX: K43.2 Incisional hernia without obstruction or gangrene (principal) | CPT/HCPCS: 99212 ==

== ENCOUNTER 2023-09-24 14:59 | Outpatient (REF) | payer OTHER, SELFPAY | END 2023-09-24 15:00 | disposition home or self-care (01) | LOC: HO.SH 14:59 | PROVIDERS: Visit Provider Nurse Practitioner Family | DX: Z01.118 Encounter for examination of ears and hearing with other abnormal findings (principal); H90.3 Sensorineural hearing loss, bilateral | CPT/HCPCS: 92557; 92567 ==

== ENCOUNTER 2023-10-31 05:56 | Day surgery (SDC) | payer OTHER, SELFPAY ==
[2023-10-29 07:30] VITALS: BMI 28.9
--- NOTE | 2023-10-30 09:57 | HO.ANESPROP2 ---
Documented by User: Aminata Rausch NP 10/30/23 09:58 HPI - Anesthesia Eval Consult details Narrative: 43yo F for Hernia Repair Incisional Reducible PMFSH Active Problems Active Problems: All Active Problems (Updated 08/23/23 @ 10:13 by Leonard Coffman MD) Degeneration, intervertebral disc, cervical (Acute) Spondylosis of cervical spine (Acute) Incisional hernia of anterior abdominal wall without obstruction or gangrene (Acute) Hernia (Acute) Morbid obesity (Acute) Stress incontinence (Acute) Chronic pain syndrome (Acute) Chronic right sacroiliac joint pain (Acute) Sacroiliitis (Acute) Spondylosis of lumbar region without myelopathy or radiculopathy (Acute) Spondyloarthropathy of lumbar spine (Acute) Lumbar back pain (Acute) Vitamin D deficiency (Acute) Vitamin deficiency, unspecified (Acute) Abdominal tenderness (Acute) Hearing difficulty of left ear (Acute) Deafness in right ear (Acute) Obesity (Acute) Bipolar 1 disorder (Acute) Hypertension (Acute) Asthma (Acute) Past Medical History Medical History Stress incontinence Spondyloarthropathy of lumbar spine Lumbar back pain Meningitis Hearing difficulty of left ear Deafness in right ear Obesity Family History Family History Mother Cervical cancer, Onset Age: 40 Surgical History Surgical History H/O section H/O hysterectomy with unilateral oophorectomy Social History Social History Housing: Assisted Living Facility Patient Tobacco Use Status: Never used Tobacco e-Cigarette/Vaping Use: Never Used Use of substances other than those prescribed or required for medical reasons: No Are you DNR?: No Advance Directives: No Advance Directives Information Provided: Yes service: No Current occupational status: unemployed Cognitive needs: No Hearing needs: No Vision needs: No Meds Allergies Allergy/AdvReac Type Severity Reaction Status Date / Time detergent Allergy Severe Unknown Uncoded 09/18/23 10:17 Nuts Allergy Severe Anaphylaxis Uncoded 09/18/23 10:17 Exam Height,Weight and Vital Signs: Height 5 ft 2 in Weight 71.668 kg Assessment and Plan Assessment Anesthesia Assessment: Chart Reviewed Documented by User: Zuleyka Phillip MD 10/31/23 07:33 PMFSH Past Medical History Medical History Stress incontinence Spondyloarthropathy of lumbar spine Lumbar back pain Meningitis Hearing difficulty of left ear Deafness in right ear Obesity Family History Family History Mother Cervical cancer, Onset Age: 40 Surgical History Surgical History H/O section H/O hysterectomy with unilateral oophorectomy History of Problems with Anesthesia: No Social History Social History Housing: Assisted Living Facility Patient Tobacco Use Status: Never used Tobacco e-Cigarette/Vaping Use: Never Used Use of substances other than those prescribed or required for medical reasons: No Are you DNR?: No Advance Directives: No Advance Directives Information Provided: Yes service: No Current occupational status: unemployed Cognitive needs: No Hearing needs: No Vision needs: No Meds Allergies Allergy/AdvReac Type Severity Reaction Status Date / Time detergent Allergy Severe Unknown Uncoded 09/18/23 10:17 Nuts Allergy Severe Anaphylaxis Uncoded 09/18/23 10:17 Exam Airway Mallampati Class: II TM Dist: >3cm Neck ROM: Full Loose/Missing/Broken Teeth: No Heart: RRR Lungs: CTA Assessment and Plan Assessment Anesthesia Assessment: Anesthesia Plan Discussed Final Anesthetic Review History of Problems with Anesthesia: No NPO: Yes ASA Class: III Final Preanesthetic Review: Meds/Allgs Chart Reviewed, Consent Obtained/Reviewed and Anes Risks/Benef Reviewed Patient Risk: Intermediate Procedure Risk: Low Anesthetic Plan Anesthetic Plan: GA Disposition: Standard PACU
[2023-10-31 06:10] VITALS: BMI 43.0
[2023-10-31 06:13] VITALS: BP 121/68; PULSE 72; RESP 16; TEMP 36; O2SAT 95
[2023-10-31] MEDS: Lactated Ringers 1,000 ML 100 ML IVCONT (06:59)
--- NOTE | 2023-10-31 07:27 | MHC.SHP ---
Pre-Procedural Eval Section A Date of Service: 10/31/23 The patient is an INPATIENT: No Changes since office visit: Yes Patient answered all questions; No Cold of Flu in the past 2 weeks, No New Medical Problems and No Changes in Medication The History & Physical has been completed within 30 days and I have reviewed it.: Yes Section B Chief Complaint: Incisional hernia without obstruction or gangrene Allergies: Allergies Allergy/AdvReac Type Severity Reaction Status Date / Time detergent Allergy Severe Unknown Uncoded 09/18/23 10:17 Nuts Allergy Severe Anaphylaxis Uncoded 09/18/23 10:17 Plan Diagnosis/Plan: Unchanged I have reviewed the history and physical and performed a pertinent physical examination on my patient. No changes have occurred unless specified. Time Spent With Patient Time: Total time managing care of this patient today ____ minutes.
[2023-10-31] MEDS: Scopolamine 1.5 MG PATCH.TD.3 TRANSDERMA (07:31)
--- NOTE | 2023-10-31 08:34 | W.PM.OPN ---
Operative Note Operative Note Date of Service: 10/31/23 Narrative: Preoperative diagnosis:Incisional hernia abdominal wall, 5 cm, reducible Postoperative diagnosis: same Procedure: repair of incisional hernia with mesh Surgeon: Amrik Sanon MD Structural Test Engineer: Brina Shore PA-C Anesthesia: general endotracheal Indications for procedure: 43-year-old female patient presenting with an 5 cm reducible incisional hernia causing discomfort. Operative findings: 5 cm reducible incisional hernia repair with an 8 cm round Ventralex mesh Specimen: none Estimated blood loss: 2 mL Complications: none Procedure details: patient was brought to the OR placed in supine position. After administering general anesthesia the patient's abdomen was prepped with ChloraPrep and draped in a sterile fashion. A surgical time-out was called the consent confirmed. Patient received preoperative antibiotics and Venodyne boots were in place. Local anesthesia was then infiltrated in a lower midline location. A lower midline incision was then made with a scalpel carried out through subcutaneous tissue up to the anterior rectus sheath. The hernia was identified in the lower abdomen. Margins of the hernia were dissected down to the base of the fascia. Hernia sac was dissected into a preperitoneal space. The sac was reduced into the abdominal cavity. No incarcerated bowel was identified. The defect was found to measure approximately 5 cm. An 8 cm round Ventralex mesh was then obtained. This was then deployed within the preperitoneal space and secured in 4 quadrants using 1 Tycron sutures. Fascia was then closed over the mesh incorporating the mesh in the repair using [id number] 1 Tycron sutures. The wounds were irrigated with saline solution and suctioned dry. Additional local was infiltrated around the muscle repair. Subcutaneous tissue was then reapproximated using interrupted 3-0 Polysorb sutures. Dermis was reapproximated using interrupted 3-0 Polysorb sutures. Skin was then closed using a running subcuticular 4-0 Polysorb suture. Steri-Strips, 2 x 2 gauze and Tegaderm were then applied. The patient tolerated the procedure well. Sponge, instrument, needle counts reported as correct. The patient was transferred to PACU in stable condition.
[2023-10-31 08:50] VITALS: BP 125/81; PULSE 75; RESP 16; TEMP 36.8; O2SAT 98
[2023-10-31 08:55] VITALS: BP 117/76; PULSE 69; RESP 16; O2SAT 100
[2023-10-31 09:00] VITALS: BP 122/74; PULSE 69; RESP 16; O2SAT 99
[2023-10-31 09:05] VITALS: BP 126/50; PULSE 67; RESP 16; O2SAT 95
[2023-10-31 09:20] VITALS: BP 135/75; PULSE 67; RESP 16; O2SAT 97
== END 2023-10-31 10:24 | disposition home or self-care (01) ==
PROVIDERS: PCP Nurse Practitioner Family; Visit Provider Surgery
PROC: (CPT 49593; principal; 2023-10-31 07:30)
DX: K43.2 Incisional hernia without obstruction or gangrene (principal); J45.909 Unspecified asthma, uncomplicated; N39.3 Stress incontinence (female) (male); H91.8X3 Other specified hearing loss, bilateral; Z79.1 Long term (current) use of non-steroidal anti-inflammatories (NSAID); Z79.899 Other long term (current) drug therapy; Z98.890 Other specified postprocedural states
CPT/HCPCS: 49593; C1781; J0131; J0665; J0690; J1100; J2250; J2405; J2704; J3010

== ENCOUNTER → 2023-10-31 05:56 | Outpatient (BNV) | payer OTHER, SELFPAY | PROVIDERS: PCP Nurse Practitioner Family; Visit Provider Surgery | DX: K43.2 Incisional hernia without obstruction or gangrene (principal) | CPT/HCPCS: 49593 ==

== ENCOUNTER 2023-11-08 13:00 | Outpatient (AMB) | payer OTHER, SELFPAY ==
--- NOTE | 2023-11-08 13:02 | A.OFFVIS_ITS ---
Intake Vital Signs 11/08/23 13:10 Height 5 ft 2 in Weight 236 lb 2 oz BMI 43.2 BP 131/70 Blood Pressure Location Lt brachial Position Sitting Pulse 77 Intake Visit Reasons: s/p incisional hernia Intake Note: Patient is seen in office for post op assessment post repair of incisional hernia. Pt c/o: admits to sore and tender, area is healing as expected surgery:10/31/23 Family Dinner Service Specialist Required: Yes Family Dinner Service Specialist Language: Brim Greaser Operator Name: Nerissa SUMMERS Information Interpreted: non-clinical & clinical Animal Care Technician: Animal Care Technician Present Allergies detergent Allergy (Severe, Uncoded 11/08/23 13:18) Unknown Nuts Allergy (Severe, Uncoded 11/08/23 13:18) Anaphylaxis Medication List - Last Reconciled 11/08/23 by Amrik Sanon MD albuterol sulfate 90 mcg/actuation (ProAir HFA) 2 puffs inhalation Q4-6H PRN cetirizine 10 mg PO DAILY cholecalciferol (vitamin D3) 50 mcg PO DAILY escitalopram oxalate 10 mg PO DAILY ibuprofen 800 mg PO Q8H PRN lisinopril 10 mg PO DAILY miconazole nitrate put 1 supp in vagina at bedtime x 3nites;use cream on area outside vagina 2X/day for up to 7days vaginal montelukast 10 mg PO DAILY oxycodone 5 mg PO Q6H PRN quetiapine 50 mg PO DAILY tizanidine 2 mg PO TID PRN 30 days HPI HPI Comments History of Present Illness Details 43-year-old female patient presenting fo r evaluation of an incisional hernia. She reports undergoing 3 Caesarean sections and then later underwent an abdominal hysterectomy in 2006. She now feels a lump in the lower abdomen which has been increasing in size. She reports increased discomfort especially with coughing. This is made worse with her asthma. In addition she notes some u rinary incontinence with coughing. She was evaluated by her drying tumbler operator who felt she had developed a hernia in the lower abdomen. Previous examination was difficult due to body habitus therefore CT pelvis was obtained. She returns today to review the results of this study. An incisional hernia is identified in the lower abdomen with a defect measuring approximately 4 cm in diameter loca ashley just above the bladder. She underwent repair of this incisional hernia on 10/31/2023 and returns today for wound check. [facility] Medical History Stress incontinence Spondyloarthropathy of lumbar spine Lumbar back pain Meningitis Hearing difficulty of left ear Deafness in right ear Obesity Surgical History (Updated 11/06/23 @ 14:37 by Nerissa Lugo [facility]) History of incisional hernia repair (~10/31/23) H/O section H/O hysterectomy with unilateral oophorectomy Family History Mother Cervical cancer, Onset Age: 40 Social History Housing: Assisted Living Facility Patient Tobacco Use Status: Never used Tobacco e-Cigarette/Vaping Use: Never Used service: No Current occupational status: unemployed Cognitive needs: No Hearing needs: No Vision needs: No Physical Exam Const General: no acute distress and well developed Nutritional Appearance: obese Orientation/consciousness: patient oriented x3 Resp Effort & Inspection: normal respiratory effort GI Inspection: Yes normal to inspection Palpation (GI): Soft to palpation, Tenderness to palpation present (GI) (Around incision), no guarding, not rigid and No hepatosplenomegaly present Skin Other: Warm, dry, no rash Neuro General: patient oriented x3 Assessment & Plan Assessment & Plan (1) Incisional hernia of anterior abdominal wall without obstruction or gangrene: Code(s): K43.2 - Incisional hernia without obstruction or gangrene Plan 43-year-old female patient status post repair of an incisional hernia repair with mesh on 10/31/2023. Her wounds are clean, dry, and intact without redness or discharge. No hernia recurrence is noted with Valsalva maneuvers. She shou ld continue to avoid lifting greater than 10 lb and return in 4 weeks for follow-up examination. Coding Level of Care Code Global (99237) Diagnoses Incisional hernia of anterior abdominal wall without obstruction or gangrene K43.2
[2023-11-08 13:10] VITALS: BP 131/70; PULSE 77; BMI 43.2
== END 2023-11-08 13:19 | disposition home or self-care (01) ==
PROVIDERS: PCP Nurse Practitioner Family; Visit Provider Surgery
DX: K43.2 Incisional hernia without obstruction or gangrene (principal)
CPT/HCPCS: 99212

== ENCOUNTER → 2023-11-08 13:00 | Outpatient (BNVA) | payer OTHER, SELFPAY | PROVIDERS: PCP Nurse Practitioner Family; Visit Provider Surgery | DX: Z48.815 Encounter for surgical aftercare following surgery on the digestive system (principal); Z87.19 Personal history of other diseases of the digestive system | CPT/HCPCS: 99212 ==

== ENCOUNTER 2023-12-06 14:57 | Outpatient (AMB) | payer OTHER, SELFPAY ==
--- NOTE | 2023-12-06 15:22 | A.OFFVIS_ITS ---
Intake Vital Signs 3 12/06/23 15:41 Height 5 ft 2 in Weight 240 lb BMI 43.9 BP 138/71 Blood Pressure Location Lt brachial Position Sitting Pulse 75 Intake Visit Reasons: 4 wk follow up incisional hernia Intake Note: Patient is seen in office for one month follow up visit, post incisional hernia repair. Pt c/o: continued occasional pulling in the area, one week post surgery been feeling tired and weak Lecturer In Computer Science Required: Yes Lecturer In Computer Science Language: English Allergies detergent Allergy (Severe, Uncoded 12/06/23 15:40) Unknown Nuts Allergy (Severe, Uncoded 12/06/23 15:40) Anaphylaxis HPI HPI Comments 2 History of Present Illness0 Details 43-year-old female patient returning 1 month following repair of incisional hernia in the lower abdomen on 10/31/2023. She returns today for final wound check. she denies any bleeding or discharge from the incision however she does feel some pulling in the lower abdomen. She also reports feeling tired the last 3 weeks. She denies fever, chills, nausea or vomiting. She is eating well (she thinks too much) and is moving her bowels on a regular basis. She has not followed up with her primary care physician regarding the symptoms. [facility] Medical History Stress incontinence Spondyloarthropathy of lumbar spine Lumbar back pain Meningitis Hearing difficulty of left ear Deafness in right ear Obesity Surgical History History of incisional hernia repair (~10/31/23) H/O section H/O hysterectomy with unilateral oophorectomy Family History Mother Cervical cancer, Onset Age: 40 Social History Housing: Assisted Living Facility Patient Tobacco Use Status: Never used Tobacco e-Cigarette/Vaping Use: Never Used service: No Current occupational status: unemployed Cognitive needs: No Hearing needs: No Vision needs: No Physical Exam Vital Signs: Last Vital Signs Pulse 75 12/06/23 15:41 BP 138/71 12/06/23 15:41 BMI result Body Mass Index 43.9 Const General: no acute distress and well developed Nutritional Appearance: obese Orientation/consciousness: patient oriented x3 Resp Effort & Inspection: normal respiratory effort GI Other: Incision is clean, dry, and intact without redness or discharge. No hernias noted with Valsalva. Inspection: Yes normal to inspection Palpation (GI): Soft to palpation, nontender, no guarding, not rigid and No hepatosplenomegaly present Abdomen image: 2 1. Incision lower abdomen Skin Other: Warm, dry, no rash Neuro General: patient oriented x3 Assessment & Plan Assessment & Plan (1) Incisional hernia of anterior abdominal wall without obstruction or gangrene: Comment: Repair October 2023 Code(s): K43.2 - Incisional hernia without obstruction or gangrene Plan 43-year-old female patient status post repair of an incisional hernia repair with mesh on 10/31/2023. Her wounds are clean, dry, and intact without redness or discharge. No hernia recurrence is noted with Valsalva maneuvers. She may return to normal activity without restriction and follow up as needed. I encouraged her to increase her activity every day to increase her endurance. Coding Level of Care Code Global (61282) Diagnoses Incisional hernia of anterior abdominal wall without obstruction or gangrene K43.2
[2023-12-06 15:41] VITALS: BP 138/71; PULSE 75; BMI 43.9
== END 2023-12-06 16:02 | disposition home or self-care (01) ==
PROVIDERS: PCP Nurse Practitioner Family; Visit Provider Surgery
DX: K43.2 Incisional hernia without obstruction or gangrene (principal)
CPT/HCPCS: 99212

== ENCOUNTER → 2023-12-06 14:57 | Outpatient (BNVA) | payer OTHER, SELFPAY | PROVIDERS: PCP Nurse Practitioner Family; Visit Provider Surgery | DX: K43.2 Incisional hernia without obstruction or gangrene (principal) | CPT/HCPCS: 99212 ==

== ENCOUNTER 2024-04-09 13:29 | Outpatient (AMB) | payer OTHER, SELFPAY ==
--- NOTE | 2024-04-09 13:30 | MHC.PC.OV ---
Vital Signs 04/09/24 13:34 Height 5 ft 2 in Weight 247 lb BMI 45.2 BP 110/74 Blood Pressure Location Lt brachial Position Sitting Pulse 72 Pulse Source Pulse Oximeter Pulse Oximetry (%) 98 Oxygen Delivery Method Room Air Intake Visit Reasons: PE Intake Note: Patient is here today for a physical and ELIZABETH from [facility] Ultrasound Applications Specialist Required: Yes Ultrasound Applications Specialist Language: Crossbar Switch Adjuster Name: Jef ([phone]) Information Interpreted: non-clinical & clinical Window Systems Administrator: Not Required per policy Accompanied by: Self / Same As Patient Allergies detergent Allergy (Severe, Uncoded 04/09/24 14:31) Unknown Nuts Allergy (Severe, Uncoded 04/09/24 14:31) Anaphylaxis Medication List - Last Reconciled 04/09/24 by Tyson Serrano MD albuterol sulfate 90 mcg/actuation (ProAir HFA) 2 puffs inhalation Q4-6H PRN cetirizine 10 mg PO DAILY cholecalciferol (vitamin D3) 50 mcg PO DAILY escitalopram oxalate 20 mg PO DAILY ibuprofen 800 mg PO Q8H PRN lisinopril 10 mg PO DAILY miconazole nitrate put 1 supp in vagina at bedtime x 3nites;use cream on area outside vagina 2X/day for up to 7days vaginal montelukast 10 mg PO DAILY quetiapine 50 mg PO DAILY tizanidine 2 mg PO TID PRN 30 days Tobacco use date assessed: 04/09/24 Dental Screening Dental Screen Date: 04/09/24 Did you have a dental visit in the last 12 months?: No Did you have a dental problem in the last 6 months where you did not have access to dental care?: No Was dental information given to patient?: No HPI PE HPI Details 43-year-old female presents to the office requesting an annual physical. I am assuming her care as her previous provider has left the practice. Patient gives history of bilateral neural deafness. Audiometry done in September confirmed the same. However she has not gotten an appointment for a hearing aid. She requests an appointment to see an ENT surgeon. Patient is taking lisinopril 10 mg a day. She believes the medication is making her sleepy. She has not taken it for the past 2 months. Along with the lisinopril patient takes tizanidine and baclofen at time for her chronic back pain. Patient has excessive body weight and is requesting for injections to reduce the same. Patient gives history of bipolar disorder and is on citalopram and Seroquel. She also gives history of lower back pain and is on nonsteroidals and tizanidine as needed. [facility] History Bilateral hearing loss Stress incontinence Spondyloarthropathy of lumbar spine Lumbar back pain Meningitis Hearing difficulty of left ear Deafness in right ear Obesity Surgical History History of incisional hernia repair (~10/31/23) H/O section H/O hysterectomy with unilateral oophorectomy Family History Mother Cervical cancer, Onset Age: 40 Social History Housing: Assisted Living Facility Patient Tobacco Use Status: Never used Tobacco e-Cigarette/Vaping Use: Never Used Second Hand Smoke Exposure: No service: No Current occupational status: unemployed Cognitive needs: No Hearing needs: No Vision needs: No Questionnaire PHQ-9 Over the last 2 weeks, how often have you been bothered by any of the following problems? 1. Little interest or pleasure in doing things: not at all 2. Feeling down, depressed, or hopeless: not at all 3. Trouble falling or staying asleep, or sleeping too much: not at all 4. Feeling tired or having little energy: not at all 5. Poor appetite or overeating: not at all 6. Feeling bad about yourself - or that you are a failure or have let yourself or your family down: not at all 7. Trouble concentrating on things, such as reading the newspaper or watching television: not at all 8. Moving or speaking so slowly that other people could have noticed. Or the opposite - being so fidgety or restless that you have been moving around a lot more than usual: not at all 9. Thoughts that you would be better off or of hurting yourself in some way: not at all Total score: 0 Depression Screening Interpretation: Negative Depression Screening Done: Yes Source: Developed by Drs. Ernst Harris, Benedict Quintanilla and colleagues, with an educational kizzy from [employer]. Thrive Questionnaire Date Thrive assessed: 04/09/24 I am a: Patient What is your living situation today?: I have a steady place to live Within the past 12 months, did the food you bought not last and you didn't have the money to get more?: Never true Within the past 12 months, did you worry whether your food would run out before you got money to buy more?: Never true Do you have trouble paying for medicines?: No Do you have trouble getting transportation to medical appointments?: No Do you have trouble paying your heating and electricity bill?: No Do you have trouble taking care of your child, family member or friend?: No Do you have trouble with day-to-day activities such as bathing, preparing meals, shopping, managing finances, etc.?: No Are you currently unemployed and looking for a job?: No Are you interested in more education?: No Currently or been in a relationship where the following occur: no concerns reported THRIVE Score: 0 AUDIT C Alcohol Use Questionnaire (AUDIT-C) 1. How often do you have a drink containing alcohol?: Never Total Score: 0 TRAVIS-7 AMB Questionnaire TRAVIS-7 Date TRAVIS - 7 assessed: 04/09/24 Feeling nervous, anxious, or on edge: 0 = Not at all Not being able to stop or control worryin = Not at all Worrying too much about different things: 0 = Not at all Trouble relaxin = Not at all Being so restless that it is hard to sit still: 0 = Not at all Becoming easily annoyed or irritable: 0 = Not at all Feeling afraid as if something awful might happen: 0 = Not at all Total TRAVIS-7 score (0-4 normal; 5-9 mild; 10-14 moderate; 15-21 severe): 0 Source: Developed by Drs. Ernst Harris, Benedict Quintanilla and colleagues, with an educational kizzy from [employer]. Physical exam (Primary Care) Vital Signs: Last Vital Signs Pulse 72 04/09/24 13:34 BP 110/74 04/09/24 13:34 Pulse Ox 98 04/09/24 13:34 Oxygen Delivery Method Room Air 04/09/24 13:34 Care Plan Goal for BP management: Blood pressure is in range. BMI result Body Mass Index 45.2 BMI Assessment/Plan discussion: High (1 lb per week weight loss suggested.) BMI High, discussed plan: lifestyle, weight reduction and dietary Tobacco/Smoking Status: Tobacco use Status Tobacco use date assessed 04/09/24 04/09/24 13:46 Patient Tobacco Use Status Never used Tobacco 04/09/24 13:46 e-Cigarette/Vaping Use Never Used 04/09/24 13:46 PHQ-9: PHQ-9 Score PHQ-9: Total score 0 04/09/24 13:46 Depression Screening Interpretation: Negative Thrive Assessment: Date of Thrive Assessment Date Thrive assessed 04/09/24 04/09/24 13:46 Currently or been in a relationship where the following occur: no concerns reported Const General: cooperative and healthy appearing Nutritional Appearance: well nourished Orientation/consciousness: patient oriented x3 Limitations: no limitations HENMT Head: Yes normal to inspection Eyes General: appearance normal, both eyes and all related structures Neck Neck: Yes normal visual inspection Chest Chest palpation & inspection: normal palpation of entire chest wall Resp Effort & Inspection: normal respiratory effort Neuro General: patient oriented x3 Assessment and Plan Assessment & Plan (1) Bilateral hearing loss: Code(s): H91.93 - Unspecified hearing loss, bilateral Plan: Patient was offered ENT referral. (2) Degeneration, intervertebral disc, cervical: Code(s): M50.30 - Other cervical disc degeneration, unspecified cervical region Plan: Old records reviewed. Patient was offered a spinal stimulator. I advised her to follow-up on this. Long-term use of nonsteroidals skin cause kidney damage. (3) Chronic pain syndrome: Code(s): G89.4 - Chronic pain syndrome (4) Annual physical exam: Code(s): Z00.00 - Encounter for general adult medical examination without abnormal findings Plan: ENT referral to be made Orders: Orders Lipid Panel Today G89.4 - Chronic pain syndrome, H91.93 - Unspecified hearing loss, bilateral, M50.30 - Other cervical disc degeneration, unspecified cervical region Liver Panel Today G89.4 - Chronic pain syndrome, H91.93 - Unspecified hearing loss, bilateral, M50.30 - Other cervical disc degeneration, unspecified cervical region UA and rflx microscopic Today G89.4 - Chronic pain syndrome, H91.93 - Unspecified hearing loss, bilateral, M50.30 - Other cervical disc degeneration, unspecified cervical region Erythrocyte Sedimentation Rate Today G89.4 - Chronic pain syndrome, H91.93 - Unspecified hearing loss, bilateral, M50.30 - Other cervical disc degeneration, unspecified cervical region MM screening mammo BI Today Z12.31 - Encounter for screening mammogram for malignant neoplasm of breast Basic Metabolic Panel Today G89.4 - Chronic pain syndrome, H91.93 - Unspecified hearing loss, bilateral, M50.30 - Other cervical disc degeneration, unspecified cervical region Thyroid Stimulating Hormone Today G89.4 - Chronic pain syndrome, H91.93 - Unspecified hearing loss, bilateral, M50.30 - Other cervical disc degeneration, unspecified cervical region Referrals Ear/Nose/Throat Referral H91.93 - Unspecified hearing loss, bilateral RAW FINISH MILL OPERATOR Referral Z12.4 - Encounter for screening for malignant neoplasm of cervix Medications: Refilled ibuprofen 800 mg PO Q8H PRN 30 tabs 0RF pain miconazole nitrate put 1 supp in vagina at bedtime x 3nites;use cream on area outside vagina 2X/day for up to 7days vaginal 24 grams 0RF albuterol sulfate 90 mcg/actuation (ProAir HFA) 2 puffs inhalation Q4-6H PRN 8.5 grams 3RF shortness of breath or wheezing J45.909 - Unspecified asthma, uncomplicated Discontinued oxycodone Partial Fill upon patient request. Discontinued Reason: Doctor's Order 5 mg PO Q6H PRN 20 tabs 0RF pain (scale score 7-10) Coding Level of Care Code Est Pt Level 4 (43718) Est Pt Prev Care 40-64y(99533) Diagnoses Bilateral hearing loss H91.93 Degeneration, intervertebral disc, cervical M50.30 Chronic pain syndrome G89.4 Annual physical exam Z00.00
[2024-04-09 13:34] VITALS: BP 110/74; PULSE 72; O2SAT 98; BMI 45.2
== END 2024-04-09 14:43 | disposition home or self-care (01) ==
PROVIDERS: PCP Nurse Practitioner Family; Visit Provider Internal Medicine
DX: Z00.00 Encounter for general adult medical examination without abnormal findings (principal); H91.93 Unspecified hearing loss, bilateral; M50.30 Other cervical disc degeneration, unspecified cervical region; G89.4 Chronic pain syndrome
CPT/HCPCS: 99396

== ENCOUNTER 2024-05-16 14:00 | Outpatient (REF) | payer OTHER, SELFPAY | END 2024-05-16 14:01 | disposition home or self-care (01) | LOC: HO.MAMMO 14:00 | PROVIDERS: PCP Internal Medicine; Visit Provider Internal Medicine | DX: Z13.89 Encounter for screening for other disorder (principal) ==

== ENCOUNTER 2024-05-29 12:59 | Outpatient (AMB) | payer OTHER, SELFPAY ==
--- NOTE | 2024-05-29 13:11 | MHC.PC.OV ---
Vital Signs 05/29/24 13:12 Height 5 ft 2 in Weight 243 lb 0.4 oz BMI 44.4 BP 112/80 Blood Pressure Location Lt brachial Position Sitting Pulse 90 Pulse Source Pulse Oximeter Pulse Oximetry (%) 97 Oxygen Delivery Method Room Air Intake Visit Reasons: Asthma Intake Note: pt c/o SOB, cough and phlegm X 3days with no relief [employer] Director Required: Yes [employer] Director Language: Turkish Allergies detergent Allergy (Severe, Uncoded 05/29/24 13:13) Unknown Nuts Allergy (Severe, Uncoded 05/29/24 13:13) Anaphylaxis Tobacco use date assessed: 04/09/24 Dental Screening Dental Screen Date: 04/09/24 HPI Asthma HPI Details 43-year-old female presents to the office to discuss her chronic medical conditions. Patient is providing history via the senior business process analyst on the iPad. Patient has still not been able to get a ENT follow-up. The insurance is also not covering the miconazole cream for her rash in the vaginal area. She is requesting injectable medications for weight loss. Patient reports that she had seen the bariatric surgeon but his regimen is hard to follow. Not exercising or following any particular diet. Complaining of wheezing and nonproductive cough. No fevers, chills for the past few days. No family members sick. [facility] Medical History (Updated 05/30/24 @ 12:16 by Tyson Serrano MD) Bipolar 1 disorder Asthma Bilateral hearing loss Stress incontinence Spondyloarthropathy of lumbar spine Lumbar back pain Meningitis Hearing difficulty of left ear Deafness in right ear Obesity Surgical History History of incisional hernia repair (~10/31/23) H/O section H/O hysterectomy with unilateral oophorectomy Family History Mother Cervical cancer, Onset Age: 40 Social History Housing: Assisted Living Facility Patient Tobacco Use Status: Never used Tobacco e-Cigarette/Vaping Use: Never Used Second Hand Smoke Exposure: No service: No Current occupational status: unemployed Cognitive needs: No Hearing needs: No Vision needs: No Questionnaire Thrive Questionnaire Date Thrive assessed: 04/09/24 I am a: Patient What is your living situation today?: I have a steady place to live Within the past 12 months, did the food you bought not last and you didn't have the money to get more?: Never true Within the past 12 months, did you worry whether your food would run out before you got money to buy more?: Never true Do you have trouble paying for medicines?: No Do you have trouble getting transportation to medical appointments?: No Do you have trouble paying your heating and electricity bill?: No Do you have trouble taking care of your child, family member or friend?: No Do you have trouble with day-to-day activities such as bathing, preparing meals, shopping, managing finances, etc.?: No Are you currently unemployed and looking for a job?: No Are you interested in more education?: No THRIVE Score: 0 AUDIT C Alcohol Use Questionnaire (AUDIT-C) 1. How often do you have a drink containing alcohol?: Never Total Score: 0 TRAVIS-7 AMB Questionnaire TRAVIS-7 Date TRAVIS - 7 assessed: 04/09/24 Source: Developed by Drs. Ernst Harris, Marcia Saini, Benedict Mays and colleagues, with an educational kizzy from [employer]. Physical exam (Primary Care) Vital Signs: Last Vital Signs Pulse 90 05/29/24 13:12 BP 112/80 05/29/24 13:12 Pulse Ox 97 05/29/24 13:12 Oxygen Delivery Method Room Air 05/29/24 13:12 Care Plan Goal for BP management: Blood pressure is in range. Continue current medications. BMI result Body Mass Index 44.4 BMI Assessment/Plan discussion: High (1 lb per week weight loss suggested.) BMI High, discussed plan: lifestyle, weight reduction, dietary and physical activity Tobacco/Smoking Status: Tobacco use Status Tobacco use date assessed 04/09/24 05/29/24 13:14 Patient Tobacco Use Status Never used Tobacco 05/29/24 13:14 e-Cigarette/Vaping Use Never Used 05/29/24 13:14 Thrive Assessment: Date of Thrive Assessment Date Thrive assessed 04/09/24 05/29/24 13:14 Const General: cooperative and healthy appearing Nutritional Appearance: well nourished Orientation/consciousness: patient oriented x3 Limitations: no limitations [facility] Head: Yes normal to inspection Eyes General: appearance normal, both eyes and all related structures Neck Neck: Yes normal visual inspection Chest Chest palpation & inspection: normal palpation of entire chest wall Resp Other: Lungs: Scattered wheeze bilaterally. Effort & Inspection: normal respiratory effort Neuro General: patient oriented x3 Assessment and Plan Assessment & Plan (1) Morbid obesity: Code(s): E66.01 - Morbid (severe) obesity due to excess calories Plan: I declined to prescribe injectable medications for weight loss. Patient needs to be evaluated at the metabolic clinic. A referral has been made. Meanwhile counseling on the importance of diet and exercise done. Patient has a very low desired to exercise or follow a particular diet. (2) Sacroiliitis: Code(s): M46.1 - Sacroiliitis, not elsewhere classified Plan: Condition is currently stable. (3) Bipolar 1 disorder: Code(s): F31.9 - Bipolar disorder, unspecified Plan: Patient has a psychiatrist and a therapist. Continue current medications (4) Asthma: Code(s): J45.909 - Unspecified asthma, uncomplicated Plan: Albuterol, azithromycin, prednisone and cetirizine added to the regimen. Patient is going to be on albuterol for relief of asthma. (5) Hypertension: Code(s): I10 - Essential (primary) hypertension Plan: Blood pressure is stable. Continue medications at same dosage. (6) Candidiasis of genitalia: Code(s): B37.49 - Other urogenital candidiasis Plan: Empiric treatment with ketoconazole ointment. Orders: Referrals Metabolic Clinic Referral E66.01 - Morbid (severe) obesity due to excess calories Medications: New azithromycin take 500 mg today (day 1), then 250 mg for 4 days (days 2-5) PO 6 tabs 0RF ketoconazole 2% 1 appl topical DAILY 30 grams 1RF prednisone 60 mg (3 x 20 mg) PO DAILY 9 tabs 0RF Changed From albuterol sulfate 90 mcg/actuation (ProAir HFA) 2 puffs inhalation Q4-6H PRN 8.5 grams 3RF shortness of breath or wheezing J45.909 - Unspecified asthma, uncomplicated To albuterol sulfate 90 mcg/actuation 2 puffs inhalation Q4-6H PRN 8.5 grams 3RF shortness of breath or wheezing J45.909 - Unspecified asthma, uncomplicated Refilled cetirizine 10 mg PO DAILY 90 tabs 1RF J45.909 - Unspecified asthma, uncomplicated Discontinued miconazole nitrate Discontinued Reason: Insurance Denied put 1 supp in vagina at bedtime x 3nites;use cream on area outside vagina 2X/day for up to 7days vaginal 24 grams 0RF Coding Level of Care Code Est Pt Level 4 (48385) Complex EM visit Add On G2211 Diagnoses Morbid obesity E66.01 Sacroiliitis M46.1 Bipolar 1 disorder F31.9 Asthma J45.909 Hypertension I10 Candidiasis of genitalia B37.49
[2024-05-29 13:12] VITALS: BP 112/80; PULSE 90; O2SAT 97; BMI 44.4
== END 2024-05-29 14:27 | disposition home or self-care (01) ==
PROVIDERS: PCP Internal Medicine; Visit Provider Internal Medicine
DX: J45.909 Unspecified asthma, uncomplicated (principal); E66.01 Morbid (severe) obesity due to excess calories; Z68.41 Body mass index [BMI] 40.0-44.9, adult; M46.1 Sacroiliitis, not elsewhere classified; I10 Essential (primary) hypertension; B37.49 Other urogenital candidiasis
CPT/HCPCS: 99214; G2211

== ENCOUNTER 2024-06-06 13:55 | Outpatient (REF) | payer OTHER, SELFPAY ==
--- NOTE | ~2024-06-06 | MM_ITS ---
EXAMINATION: MM SCREENING DIGITAL BREAST TOMOSYNTHESIS, BILATERAL CLINICAL INFORMATION: Screening. Asymptomatic. COMPARISON: Mammography: This study is compared with prior exams dating back to 2021. TECHNIQUE: Digital breast tomosynthesis is performed in both the craniocaudal and mediolateral oblique views along with computer-aided detection (CAD). Synthesized 2D images are generated from the tomosynthesis. FINDINGS: The breasts are almost entirely fatty (ACR BI-RADS breast composition Category a). There are no significant masses, abnormal calcifications, or other abnormalities. MM/MM tomosynthesis screening BI IMPRESSION: No mammographic evidence of malignancy. ASSESSMENT: BI-RADS BI-RADS 1 - Negative RECOMMENDATION: Routine annual mammography screening. 1 year F/U This examination should not preclude the clinical evaluation of a suspicious palpable abnormality. This patient's information was entered into a reminder system with a target due date for their next mammogram. Electronically signed by: Camelia Guerra MD 07/05/2024 03:52 PM EDT
== END 2024-06-06 13:56 | disposition home or self-care (01) ==
LOC: HO.MAMMO 13:55
PROVIDERS: PCP Internal Medicine; Visit Provider Internal Medicine
DX: Z12.31 Encounter for screening mammogram for malignant neoplasm of breast (principal)
CPT/HCPCS: 77063; 77067

== ENCOUNTER → 2024-06-06 14:45 | Outpatient (BNV) | payer OTHER, SELFPAY | PROVIDERS: PCP Internal Medicine; Visit Provider Radiology Diagnostic Radiology | DX: Z12.31 Encounter for screening mammogram for malignant neoplasm of breast (principal) | CPT/HCPCS: 77063; 77067 ==

== ENCOUNTER 2024-06-26 14:57 | Outpatient (AMB) | payer OTHER, SELFPAY ==
--- NOTE | 2024-06-26 15:21 | A.OFFVIS_ITS ---
Vital Signs 06/26/24 15:22 Height 5 ft 2 in Weight 247 lb BMI 45.2 BP 135/71 Blood Pressure Location Lt brachial Position Sitting Pulse 88 Pulse Source Pulse Oximeter Pulse Oximetry (%) 97 Oxygen Delivery Method Room Air Intake Visit Reasons: Back and Left Arm pain Allergies detergent Allergy (Severe, Uncoded 05/29/24 13:13) Unknown Nuts Allergy (Severe, Uncoded 05/29/24 13:13) Anaphylaxis HPI Comments Details: Patient presents back to the office today for follow-up. Previously evaluated our office last year, was planning for SI joint PNS but was lost to follow-up after she declined completion of mental health evaluation. Today she would like to proceed with [facility] and PNS stimulation. Also complaining of upper back pain. Completed physical therapy < 1 year ago without improvement of her symptoms She has been taking the tizanidine but has since run out. States ibuprofen and tizanidine will help her pain. Prior: Mya is back in my office with new complains on pain in the neck with radiation into bilateral upper extremities all the way to her wrists but not into her fingers. She also complains on pain in the lower back. She received diagnostic sacroiliac joint injection for the lower back pain and she had 100% pain improvement for 24 hours. She was given 3 options of treatment including steroid injections, PNS stimulation and sacroiliac joint fusion. She did not want steroid injections because it would make her to gain more weight, she did not like the idea of fusion because it is too invasive. She would like to try a PNS stimulation for the sacroiliac joint pain. When the [facility] a logical evaluation was calling her to schedule psychological evaluation for pain as stimulation she told him that she is no longer interested. However today she changed her mind and she decided to go for psychological evaluation. We will schedule her again. As of her cervical pain with radiation into bilateral upper extremities she took ibuprofen for this pain but never had physical therapy, she never had any muscle relaxants. I explained to her that I will start her on muscle relaxants tizanidine 2 mg t.i.d. and I also will send her for physical therapy. After that we will evaluate pain in the neck. She already reported to me that losing 7 lb of weight made her pain much better. I recommended her diet and exercise to lose her weight. She agreed with me on that. I recommended her to perform low impact aerobic exercises the swimming, elliptical machine, stationary bicycle. Prior: Syriac-speaking 42 years old female, complains on pain in the lower back with radiation into the bilateral flanks as well as radiation of the pain into the right lower extremity.? She reports that radiation goes all the way down to her ankle.? She sometimes feels significant discomfort in the projection of the left buttock as well.? 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 She also contribute her pain to obesity.? She reports that her right leg is shorter than the left 1.She is not working currently.? She is not disabled.? She reports past medical history of hypertension asthma and bipolar disorder she reports that she is deaf for the left ear.? She reports history of meningitis as a child.? Her past surgical history significant for x1 and hysterectomy x1.? Social history currently not working willing to go to work, she does not smoke cigarettes does not drink alcohol she drinks to be ca ffeinated beverages to big glasses of coffee she denies recreational drugs.? She drinks soda on occasion but no more often than once in 2 months [facility] Medical History (Updated 06/26/24 @ 15:49 by Angelica Pereira APRN, CUSTOMER RELATIONS COORDINATOR) Bipolar 1 disorder Asthma Bilateral hearing loss Stress incontinence Spondyloarthropathy of lumbar spine Lumbar back pain Meningitis Hearing difficulty of left ear Deafness in right ear Obesity Surgical History History of incisional hernia repair (~10/31/23) H/O section H/O hysterectomy with unilateral oophorectomy Family History Mother Cervical cancer, Onset Age: 40 Social History Housing: Assisted Living Facility Patient Tobacco Use Status: Never used Tobacco e-Cigarette/Vaping Use: Never Used Second Hand Smoke Exposure: No service: No Current occupational status: unemployed Cognitive needs: No Hearing needs: No Vision needs: No Physical Exam Vital Signs: Last Vital Signs Pulse 88 06/26/24 15:22 BP 135/71 06/26/24 15:22 Pulse Ox 97 06/26/24 15:22 Oxygen Delivery Method Room Air 06/26/24 15:22 BMI result Body Mass Index 45.2 General: awake, alert, oriented. Answers questions appropriately. Fully engaged in examination. Skin: warm, dry, intact HEENT: Normocephalic. Hearing intact. Cardiac: External chest normal in appearance. Respiratory: No cough, audible wheezing or stridor. Abdomen: without gross distension. MS: No obvious swelling or deformities. Able to stand on bilateral tiptoes and bilateral heels.? Able to transition from sit to stand unassisted. Ambulates with bilaterally normal heel strike and toe off SLR negative bilaterally Diffusely tender over her upper and lower back Tenderness over right PSIS [place] positive on the right SI compression positive Thigh thrust positive on the right Neurological: Oriented to person, place, time and situation. Thought process intact. No gait abnormalities appreciated. Psychiatric: Appropriate mood and affect. Good judgment and insight. Results Reviewed Results Reviewed: MRI lumbar spine 12/29/2022. Findings: Normal anatomic alignment. Moderate degenerative disc disease at T10-T11 T11- T12 L1-L2. Mild degenerative disc disease at additional lumbar levels. Associated makes it Modic type discogenic endplate changes including minimal Modic type 1 discogenic edema at T11-T12 and T12-L1. No additional suspicious marrow edema. The vertebral body heights are largely maintained. The conus medullaris terminates at the level of L1. The distal spinal cord is normal in appearance. Nonspecific moderate added atrophy of right iliopsoas musculature. No additional significant abnormalities of paraspinal musculature. Limited evaluation of intra-abdominal structures without significant abnormalities. The abdominal E Flor normal in contour and caliber. Axial spinal levels: T12-1 normal annual contour. Mild left and no right facet arthropathy. No neural foraminal stenosis. No spinal canal stenosis. L1-L2: Mild diffuse disc bulge with superimposed shallow central disc protrusion. Mild bilateral facet joint arthropathy no neural foraminal stenosis. No spinal canal stenosis. L2-L3: Normal annular contour. Mild bilateral facet joint arthropathy. No neuroforaminal no spinal canal stenosis. L3-L4 normal annular counter. Mild bilateral facet joint arthropathy. No neural foraminal stenosis. No spinal canal stenosis. L4-5: Shallow diffuse disc bulge with superimposed small left foraminal disc protrusion. Mild bilateral facet joint arthropathy. Mild left and no right neural foraminal stenosis. No spinal canal stenosis. L5-S1: Normal annular contour, mild bilateral facet joint arthropathy, no neural foraminal stenosis, no spinal canal stenosis. Assessment & Plan Assessment & Plan (1) Spondyloarthropathy of lumbar spine: Code(s): M47.816 - Spondylosis without myelopathy or radiculopathy, lumbar region Category: Medical (2) Lumbar back pain: Code(s): M54.50 - Low back pain, unspecified Category: Medical (3) Spondylosis of lumbar region without myelopathy or radiculopathy: Code(s): M47.816 - Spondylosis without myelopathy or radiculopathy, lumbar region Category: Medical (4) Sacroiliitis: Code(s): M46.1 - Sacroiliitis, not elsewhere classified Category: Medical (5) Chronic right sacroiliac joint pain: Code(s): M53.3 - Sacrococcygeal disorders, not elsewhere classified; G89.29 - Other chronic pain Category: Medical (6) Chronic pain syndrome: Code(s): G89.4 - Chronic pain syndrome Category: Medical (7) Spondylosis of cervical spine: Code(s): M47.812 - Spondylosis without myelopathy or radiculopathy, cervical region Category: Medical (8) Degeneration, intervertebral disc, cervical: Code(s): M50.30 - Other cervical disc degeneration, unspecified cervical region Category: Medical (9) Myofascial low back pain: Code(s): M54.50 - Low back pain, unspecified Category: Medical Plan Patient presented back to the office today for follow-up back pain Per previous note: Right diagnostic SI joint injection resulted in excellent pain relief narrow pain with no steroids alleviate her pain for full 24 hours. She wanted to proceed for PNS of the right SI joint innervation however she somewhat forgot that and rejected [facility] psychological evaluation. She is ready to proceed with this procedure. [facility] brochure was given to the patient, she should call and completely mental health evaluation before she would be scheduled for any implantable devices. Discontinue ibuprofen, new prescription for celecoxib 50 mg p.o. twice daily. Take with food, do not take with any other nonsteroidal anti-inflammatory medications. Continue with tizanidine as prescribed All questions and concerns were answered, patient agrees to the plan. Follow-up with after completion of the mental health evaluation. Medications: New celecoxib Take with food, do not take with any other nonsteroidal anti-inflammatory medications. 50 mg PO BID 60 caps 1RF Refilled tizanidine 2 mg PO TID PRN 90 tabs 8RF muscle spasticity 30 days Coding Level of Care Code Est Pt Level 3 (66238) Complex EM visit Add On G2211 Diagnoses Spondyloarthropathy of lumbar spine M47.816 Lumbar back pain M54.50 Spondylosis of lumbar region without myelopathy or radiculopathy M47.816 Sacroiliitis M46.1 Chronic right sacroiliac joint pain M53.3; G89.29 Chronic pain syndrome G89.4 Spondylosis of cervical spine M47.812 Degeneration, intervertebral disc, cervical M50.30 Myofascial low back pain M54.50
[2024-06-26 15:22] VITALS: BP 135/71; PULSE 88; O2SAT 97; BMI 45.2
== END 2024-06-26 15:47 | disposition home or self-care (01) ==
PROVIDERS: PCP Internal Medicine; Visit Provider Registered Nurse Emergency
DX: M47.816 Spondylosis without myelopathy or radiculopathy, lumbar region (principal); M54.50 Low back pain, unspecified; M46.1 Sacroiliitis, not elsewhere classified; M53.3 Sacrococcygeal disorders, not elsewhere classified; G89.29 Other chronic pain; G89.4 Chronic pain syndrome; M47.812 Spondylosis without myelopathy or radiculopathy, cervical region; M50.30 Other cervical disc degeneration, unspecified cervical region
CPT/HCPCS: 99213; G2211

== ENCOUNTER → 2024-06-26 14:57 | Outpatient (BNVA) | payer OTHER, SELFPAY | PROVIDERS: PCP Internal Medicine; Visit Provider Registered Nurse Emergency | DX: M47.816 Spondylosis without myelopathy or radiculopathy, lumbar region (principal); M46.1 Sacroiliitis, not elsewhere classified; M53.3 Sacrococcygeal disorders, not elsewhere classified; M47.812 Spondylosis without myelopathy or radiculopathy, cervical region; M50.30 Other cervical disc degeneration, unspecified cervical region; G89.4 Chronic pain syndrome | CPT/HCPCS: 99212 ==

== ENCOUNTER 2024-08-18 13:08 | Outpatient (AMB) | payer OTHER, SELFPAY ==
[2024-08-18 13:29] VITALS: BP 118/68; BMI 45.4
--- NOTE | 2024-08-18 13:29 | MHC.OFFVIS ---
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 Complaining of vulvovaginal discharge associated with itching and odor Last Pap/HPV was 3 years ago and was normal according to patient, no records available Last Mammogram was BI-RADS 1 in 06/14 No previous screen colonoscopy [facility] Medical History ISRA II (cervical intraepithelial neoplasia II) Bipolar 1 disorder Asthma Bilateral hearing loss Stress incontinence Spondyloarthropathy of lumbar spine Lumbar back pain Meningitis Hearing difficulty of left ear Deafness in right ear Obesity Surgical History History of incisional hernia repair (~10/31/23) H/O section H/O hysterectomy with unilateral oophorectomy Family History Mother Cervical cancer, Onset Age: 40 Social History Housing: Assisted Living Facility Patient Tobacco Use Status: Never used Tobacco e-Cigarette/Vaping Use: Never Used Second Hand Smoke Exposure: No service: No Current occupational status: unemployed Cognitive needs: No Hearing needs: No Vision needs: No Female Reproductive History Menstrual control method: permanent sterilization Total pregnancies: 4 Full term: 3 Ab spontaneous: 1 History of abnormal pap smear: No History of STI: No Date of Mammogram: 06/06/24 History of abnormal mammogram: No Review of Systems Const All systems reviewed & are unremarkable except as noted in HPI and below Card Reports as per HPI and Reports no additional complaints Resp Reports as per HPI and Reports no additional complaints GI Reports as per HPI and Reports no additional complaints Reports as per HPI Physical Exam Vital Signs: Last Vital Signs BP 118/68 08/18/24 13:29 BMI result Body Mass Index 45.4 Const General: cooperative, healthy appearing and comfortable General: Yes bladder normal to palpation External Female Exam: No lesion Speculum Exam - Vagina: normal appearance of the vagina, normal vaginal discharge and not erythematous Speculum Exam - Cervix: Cervix absent Bimanual exam- vagina & uterus: bladder normal to palpation and uterus absent Bimanual Exam- Adnexa, other: Other (No masses detected) Assessment & Plan Assessment & Plan (1) Well woman exam: Code(s): Z01.419 - Encounter for gynecological examination (general) (routine) without abnormal findings Category: Medical Plan: Cotesting done although the patient is status post hysterectomy since the indication was ISRA 2 Instructions given the patient to schedule next screening Mammogram in 06/15. Counseled the patient about the recommended dietary allowance of 1000 mg of Calcium & 600 IU of vitamin D. The patient was referred to GI for screening colonoscopy The patient was instructed to perform monthly self-breast exams and to schedule an annual exam in a year; All questions answered and the patient verbalized understanding. Instructed the patient to schedule annual exam in a year (2) Vulvovaginitis: Code(s): N76.0 - Acute vaginitis Category: Medical Plan: BV panel collected will treat with Terazol 0.8% q.h.s. for 3 days with metronidazole 500 mg p.o. b.i.d. for 7 days. Instructions given the patient to call in case symptoms not improve. Orders: Orders Bacterial Vaginosis Panel Today Z01.419 - Encounter for gynecological examination (general) (routine) without abnormal findings PAP + HPV E6/E7 rfx 18/45 Today Z01.419 - Encounter for gynecological examination (general) (routine) without abnormal findings Referrals Gastroenterology Referral Z12.11 - Encounter for screening for malignant neoplasm of colon Medications: New metronidazole 500 mg PO BID 7 days 14 tabs 0RF terconazole 0.8% 1 appful vaginal BEDTIME 3 days 20 grams 0RF Coding Level of Care Code New Pt Prev Care 40-64y(99349) Diagnoses Well woman exam Z01.419 Vulvovaginitis N76.0
== END 2024-08-18 14:03 | disposition home or self-care (01) ==
LOC: HO.HWS 13:08
PROVIDERS: PCP Internal Medicine; Visit Provider Obstetrics & Gynecology
DX: Z01.419 Encounter for gynecological examination (general) (routine) without abnormal findings (principal); N76.0 Acute vaginitis
CPT/HCPCS: 99386

== ENCOUNTER 2024-08-18 13:08 | Outpatient (REF) | payer OTHER, SELFPAY ==
[2024-08-19 09:36] LABS: Bacterial Vaginosis PCR NEGATIVE (Negative); Candida Group PCR NOT DETECTED (Not Detect); Candida glab krusei PCR NOT DETECTED (Not Detect); Trichomonas vaginalis PCR NOT DETECTED (Not Detect)
[2024-08-21 17:09] LABS: HPV mRNA E6/E7 Not Detected (Not Detected)
== END 2024-08-18 13:09 | disposition home or self-care (01) ==
LOC: HO.LNP 13:08
PROVIDERS: PCP Internal Medicine; Visit Provider Obstetrics & Gynecology
DX: Z01.419 Encounter for gynecological examination (general) (routine) without abnormal findings (principal); N76.0 Acute vaginitis
CPT/HCPCS: 0352U; 87624; 88175; 99386

== ENCOUNTER 2024-12-12 14:26 | Outpatient (AMB) | payer OTHER, SELFPAY ==
--- NOTE | 2024-12-12 14:27 | A.OFFVIS_ITS ---
Vital Signs 12/12/24 14:31 Height 5 ft 2 in Weight 229 lb 4.492 oz BMI 41.9 BP 128/66 Blood Pressure Location Rt brachial Position Sitting Pulse 64 Intake Visit Reasons: Discuss Colonoscopy Intake Note: Mya presents in the office as a new patient to discuss having a colonoscopy. CC: She states that she gets yuliet - she thought after hernia surgery they would go away but they have not. Electrical Engineering Technologist Required: Yes Electrical Engineering Technologist Name: Shari Pennington detergent Allergy (Severe, Uncoded 12/12/24 14:31) Unknown Nuts Allergy (Severe, Uncoded 12/12/24 14:31) Anaphylaxis HPI Comments Details: 44 year old female presenting to the office for discussion of colon cancer screening. Seen with the help of Shari SANTA. Patient is at average risk of colon cancer due to no family history of colon cancer. Patient does not have any other gastrointestinal symptoms to include abdominal pain, nausea, vomiting, diarrhea, blood in stool, weight loss. Labs reviewed to confirm patient does not have anemia. Pt also reports increased bloating and flatulence ongoing x months. Initially attributed to her ventral hernia which has since been repaired. Sx mostly at night time. Worse with foods containing bread/pasta. Also reports drinking carbonated drinks. [facility] Medical History ISRA II (cervical intraepithelial neoplasia II) Bipolar 1 disorder Asthma Bilateral hearing loss Stress incontinence Spondyloarthropathy of lumbar spine Lumbar back pain Meningitis Hearing difficulty of left ear Deafness in right ear Obesity Surgical History History of incisional hernia repair (~10/31/23) H/O section H/O hysterectomy with unilateral oophorectomy Family History Mother Cervical cancer, Onset Age: 40 Social History Housing: Assisted Living Facility Patient Tobacco Use Status: Never used Tobacco e-Cigarette/Vaping Use: Never Used Second Hand Smoke Exposure: No service: No Current occupational status: unemployed Cognitive needs: No Hearing needs: No Vision needs: No Review of Systems Const All systems reviewed & are unremarkable except as noted in HPI and below Physical Exam Vital Signs: Last Vital Signs Pulse 64 12/12/24 14:31 BP 128/66 12/12/24 14:31 BMI result Body Mass Index 41.9 No apparent distress Nonicteric Abdomen soft, nondistended Alert and oriented x3, normal gait Assessment & Plan Assessment & Plan (1) Bloating: Code(s): R14.0 - Abdominal distension (gaseous) Category: Medical (2) Colon cancer screening: Code(s): Z12.11 - Encounter for screening for malignant neoplasm of colon Category: Medical Plan 1. Bloating Educated on avoiding sodas, gum,smoking to avoid aerophagia. Also discussed low FODMAP diet. In addition will check for malabsoprtion. Plan: - Labs as below - Low FODMAP diet - Avoid sodas/seltzers, artificial sweeteners, chewing gum, smoking - Simethicone 80-160mg BID PRN for bloating 2. CRC screenign [place] to be booked. Instructions reviewed in [place]. Plan: - PEG sent to pharmacy - HAndout given Follow up PRN Orders: Orders TSH reflex Free T4 Today R14.0 - Abdominal distension (gaseous) Transglutaminase IgA Today R14.0 - Abdominal distension (gaseous) Immunoglobulin A Today R14.0 - Abdominal distension (gaseous) Complete Blood Count no Diff Today R14.0 - Abdominal distension (gaseous) Medications: New peg 3350-electrolytes 236-22.74-6.74 -5.86 gram (Golytely) as per split prep instructions, until fecal effluent is clear 240 mL PO Q10M 4,000 mL 0RF colonoscopy simethicone (Gas Relief (simethicone)) 160 mg (2 x 80 mg) PO BID-TID PRN 60 tabs 1RF abdominal distention Coding Level of Care Code New Pt Level 4 (68366) Diagnoses Bloating R14.0 Colon cancer screening Z12.11
[2024-12-12 14:31] VITALS: BP 128/66; PULSE 64; BMI 41.9
== END 2024-12-12 16:40 | disposition home or self-care (01) ==
PROVIDERS: PCP Internal Medicine; Visit Provider Internal Medicine
DX: Z01.818 Encounter for other preprocedural examination (principal); Z12.11 Encounter for screening for malignant neoplasm of colon; R14.0 Abdominal distension (gaseous)
CPT/HCPCS: 99202

== ENCOUNTER → 2024-12-12 14:26 | Outpatient (BNVA) | payer OTHER, SELFPAY | PROVIDERS: PCP Internal Medicine; Visit Provider Internal Medicine | DX: Z12.11 Encounter for screening for malignant neoplasm of colon (principal); R14.0 Abdominal distension (gaseous) | CPT/HCPCS: 99202 ==

== ENCOUNTER 2025-04-06 14:05 | Outpatient (REF) | payer OTHER, SELFPAY ==
[2025-04-07 11:31] LABS: Bacterial Vaginosis PCR NEGATIVE (Negative); Candida Group PCR DETECTED (Not Detect); Candida glab krusei PCR NOT DETECTED (Not Detect); Trichomonas vaginalis PCR NOT DETECTED (Not Detect)
== END 2025-04-06 14:06 | disposition home or self-care (01) ==
LOC: HO.LNP 14:05
PROVIDERS: PCP Internal Medicine; Visit Provider Obstetrics & Gynecology
DX: N76.0 Acute vaginitis (principal)
CPT/HCPCS: 81515; 99212

== ENCOUNTER 2025-04-06 14:05 | Outpatient (AMB) | payer OTHER, SELFPAY ==
[2025-04-06 14:38] VITALS: BMI 40.8
--- NOTE | 2025-04-06 14:38 | MHC.OFFVIS ---
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 The patient had the BV panel which was negative in 08/14 was treated with Terazol 0.8% but her symptoms keep on recurrent. The patient has urine incontinence upon coughing sneezing or lifting heavy objects no urge incontinence. The patient wears pads all the time has recently changed brands [facility] Medical History ISRA II (cervical intraepithelial neoplasia II) Bipolar 1 disorder Asthma Bilateral hearing loss Stress incontinence Spondyloarthropathy of lumbar spine Lumbar back pain Meningitis Hearing difficulty of left ear Deafness in right ear Obesity Surgical History History of incisional hernia repair (~10/31/23) H/O section H/O hysterectomy with unilateral oophorectomy Family History Mother Cervical cancer, Onset Age: 40 Social History Housing: Assisted Living Facility Patient Tobacco Use Status: Never used Tobacco e-Cigarette/Vaping Use: Never Used Second Hand Smoke Exposure: No service: No Current occupational status: unemployed Cognitive needs: No Hearing needs: No Vision needs: No Review of Systems Const All systems reviewed & are unremarkable except as noted in HPI and below Card Reports as per HPI and Reports no additional complaints Resp Reports as per HPI and Reports no additional complaints GI Reports as per HPI and Reports no additional complaints Reports as per HPI Physical Exam Vital Signs: BMI result Body Mass Index 40.8 Const General: cooperative, healthy appearing and comfortable General: Yes no CVA tenderness External Female Exam: normal external appearance and normal appearance of the urethra Speculum Exam - Vagina: normal appearance of the vagina, normal palpation, no lesions, no masses and other ([id number] rectocele) Speculum Exam - Cervix: Cervix absent Bimanual exam- vagina & uterus: normal bimanual exam, normal palpation and uterus absent Bimanual Exam- Adnexa, other: normal adnexae Back/Spine/Pelvis Back: no CVA tenderness Assessment & Plan Assessment & Plan (1) Contact dermatitis: Code(s): L25.9 - Unspecified contact dermatitis, unspecified cause Category: Medical Plan: Discussed with the patient possible cause of her vulvovaginal itching is contract dermatitis due to urine incontinence wearing pads all the time, recommended hydrocortisone twice a day for 5 days and remove the pad as much as possible. Instructions given the patient to call in case symptoms not improve (2) Urine incontinence: Comment: With rectocele Code(s): R32 - Unspecified urinary incontinence Category: Medical Plan: Discussed with the patient the different types of Urine incontinence, stress urinary incontinence, intrinsic sphincter deficiency, overactive bladder and its work up. We will refer to Urogynecology [facility]. All questions answered, the patient verbalized understanding. (3) Vulvovaginitis: Code(s): N76.0 - Acute vaginitis Category: Medical Plan: Bacterial Vaginosis panel taken, Terazol 0.8% q.h.s. for 3 days was sent to the patient's pharmacy. The patient was instructed to call if symptoms don't improve in 48 hours. Orders: Referrals Urogynecology Referral N81.6 - Rectocele, R32 - Unspecified urinary incontinence Medications: New terconazole 0.8% 1 appful vaginal BEDTIME 3 days 20 grams 0RF Coding Level of Care Code Est Pt Level 3 (47272) Diagnoses Contact dermatitis L25.9 Urine incontinence R32 Vulvovaginitis N76.0
== END 2025-04-06 15:18 | disposition home or self-care (01) ==
LOC: HO.HWS 14:05
PROVIDERS: PCP Internal Medicine; Visit Provider Obstetrics & Gynecology
DX: L25.9 Unspecified contact dermatitis, unspecified cause (principal); R32 Unspecified urinary incontinence; N76.0 Acute vaginitis
CPT/HCPCS: 99213